=== PATIENT | male | born 1965 | race Caucasian/White ===

== ENCOUNTER 2017-05-12 19:49 | Inpatient (IN) ==
[2017-05-12 21:02] LABS: INR 2.2; Prothrombin Time 23.8 Seconds (9.4-12.1)
[2017-05-12] MEDS ORDERED: OXYCODONE Oral CONC 10 MG/0.5 ML ORAL.SYG SL PRN (21:07)
[2017-05-12] MEDS ORDERED: Naloxone 0.4 MG/ML INJ IVP PRN (21:07)
[2017-05-12] MEDS ORDERED: Ondansetron 4 MG/2 ML VIAL IVP PRN (21:07)
[2017-05-12] MEDS ORDERED: *HR* HYDROcodone/Acet 5/325 mg TABLET PO PRN (21:07)
--- NOTE | 2017-05-12 21:16 | Urology History & Physical ---
Date of Encounter: 05/12/17 Time of Encounter: 21:14 Assessment and Plan (1) Cellulitis of scrotum Current Visit: Yes Status: Acute This is an interesting presentation as there was a large amount of edema that occurred within hours of the drain removal. This would suggest a hematoma however bedside ultrasound in the emergency room demonstrates only scrotal wall edema without evidence of hematoma or fluid collection. This could be rapid onset of cellulitis. I have elected for admission with IV antibiotics. Will treat with vancomycin. We'll obtain an official ultrasound to confirm the bedside ultrasound findings. No need for urgent surgical intervention tonight is no hematoma is obvious. History of Present Illness Chief complaint: Scrotal swelling HPI: Mr. Layne is a 51 year old male 1.5 weeks status post hydrocelectomy. Patient has mechanical heart valve and is anticoagulated. Drain was left in place to help prevent hematoma. The drain fell out this afternoon and there was small stringy tissue that was also present. This was removed by the patient's . There is no major issue with removal of the drain or this tissue. Within a few hours he had concerning swelling to the hemiscrotum and some discomfort. No fever. Past Med Surg Social Fam HX - Past Medical History Medical history: hyperlipidemia, thyroid disease Psychiatric history: no psych history - Social History Smoking Status: Never smoker Smokeless Tobacco Status: No Alcohol use: occasionally Drug use: none Medications and Allergies Aspirin [Lo-Dose Aspirin EC] 81 mg PO DAILY 05/02/17 [History] Atorvastatin [Lipitor] 10 mg PO DAILY 05/02/17 [History] Cholecalciferol (D-3) [Vitamin D] 5,000 unit PO DAILY 05/02/17 [History] Fish Oil/Dha/Epa [Fish Oil 1,200 mg Fish Oil] 1 cap PO DAILY 05/02/17 [History] Levothyroxine Sodium [Synthroid] 137 mcg PO DAILY 05/02/17 [History] Multivitamin [One Daily Essential] 1 tab PO DAILY 05/02/17 [History] Tadalafil [Cialis] 5 mg PO DAILY 05/02/17 [History] Vitamin E Acetate [Vitamin E] 400 unit PO DAILY 05/02/17 [History] Warfarin [Coumadin] 5 mg PO SUTUWETHSA 05/02/17 [History] Warfarin [Coumadin] 7.5 mg PO MOFR 05/02/17 [History] 3 Allergy/AdvReac Type Severity Reaction Status Date / Time No Known Allergies Allergy Verified 05/02/17 07:24 Review of Systems - Constitutional no chills, no fever(s) - EENT Nose, mouth and throat: no dizziness - Cardiovascular no chest pain - Respiratory no cough - Gastrointestinal no abdominal pain - Genitourinary scrotal swelling - Musculoskeletal no back pain - Integumentary no lesions - Neurological no confusion - Psychiatric no anxiety - Hematologic/Lymphatic easy bleeding, easy bruising - Allergic/Immunologic no throat swelling Exam Initial Vital Signs Temp Pulse Resp BP Pulse Ox 97.9 F 97 16 164/131 98 05/12/17 19:51 05/12/17 19:51 05/12/17 19:51 05/12/17 19:51 05/12/17 19:51 - General physical appearance Present: well developed, no distress - Eyes Present: PERRL - ENT Present: normal nares - Neck Present: no masses - Respiratory Present: normal respiratory effort - Cardiovascular Cardiovascular exam IM: clicks, RRR - Abdomen Abdomen: Present: soft, non tender. Absent: suprapubic tenderness - Genitourinary normal penis with no external lesions - Integumentary Present: no abnormal pigmentation. Absent: no rash - Neurologic Absent: disoriented - Musculoskeletal Present: normal gait - Additional Findings On exam. The patient does not have significant ecchymosis to the scrotum. Edema is present but it appears more consistent with scrotal wall edema rather than underlying hematoma. Drain site is not draining. Some swelling up into the inguinal region. There is erythema on the left hemiscrotum that does not extend beyond the margins of the scrotum. There is no purulence. Left testicle was not palpable secondary to edema. Right testicle is palpably normal. Incision line is intact. Urology Results - Labs Abnormal lab results PT 23.8 Seconds (9.4-12.1) H 05/12/17 20:40 All other labs normal.
[2017-05-12 21:29] LABS: BUN/Creatinine Ratio 15 (6-26); Blood Urea Nitrogen 13 mg/dL (6-20); Carbon Dioxide 29 mEq/L (23-29); Chloride 105 mEq/L (98-107); Glucose 86 mg/dL (70-105); Osmolality,Calculated 293 (280-300); Potassium 3.7 mEq/L (3.5-5.1); Sodium 142 mEq/L (136-145); eGFR For African Americans > 60 (> 60); eGFR For Non-African Americans > 60 (> 60)
[2017-05-12 21:59] LABS: Basophils # 0.1 K/mcL (0.0-0.2); Basophils % 0.5 %; Eosinophils # 0.1 K/mcL (0.0-0.6); Hematocrit 43.6 % (37.5-50.1); Hemoglobin 14.7 g/dL (12.9-16.9); Immature Granulocytes % 0.5 % (0-4); Lymphocytes # 1.8 K/mcL (0.6-4.6); Lymphocytes % 18.4 %; Mean Corpuscular HGB Conc 33.7 g/dL (31.6-35.5); Mean Platelet Volume 9.9 fL (9.4-12.4); Monocytes % 10.4 %; Neutrophils # 6.9 K/mcL (1.6-8.9); Platelet Count 301 K/mcL (140-400); Red Blood Count 4.74 M/mcL (4.19-5.50); Red Cell Distribution Width 12.1 % (11.5-14.5); Segmented Neutrophils % 69.2 %
[2017-05-12] MEDS ORDERED: 0.9 % Sodium Chloride 1,000 ML ONE (22:04)
[2017-05-12] MEDS: *HR* Warfarin 7.5 MG TABLET PO SCH (22:35)
[2017-05-12] MEDS: 0.9 % Sodium Chloride 1,000 ML IVC SCH (22:35)
[2017-05-13] MEDS: Ibuprofen 400 MG TABLET PO PRN (04:57)
--- NOTE | 2017-05-13 07:59 | Urology Progress Note ---
Date of Encounter: 05/13/17 Time of Encounter: 07:56 - Assessment and Plan (1) Cellulitis of scrotum Current Visit: Yes Status: Acute Assessment and plan: I reviewed the official scrotal ultrasound. There is minimal fluid collection and it appears that the swelling is consistent with scrotal wall edema. I suspect cellulitis. No urgent surgical intervention based on exam. I feel that IV antibiotics are most appropriate at this time. Continue vancomycin. We will add clindamycin. No infectious disease consult available at this time we will attempt to contact for any further recommendations. Plan discussed in detail with the patient. We did discuss obvious concern regarding cellulitis and mechanical heart valve. We will need to continue hospitalization with IV antibiotics for now. Progress Note Narrative: Reports minimal change in condition. Low-grade fever overnight. Pain has not increased. Objective Initial Vital Signs Temp Pulse Resp BP Pulse Ox 97.9 F 97 16 164/131 98 05/12/17 19:51 05/12/17 19:51 05/12/17 19:51 05/12/17 19:51 05/12/17 19:51 - General physical appearance Present: no distress - Additional Exam Continued edema to his scrotum. Possibly slight increase compared to last night. Erythema to the left hemiscrotum similar and has not extended above the scrotum. There is a distinct line in this location. No crepitus to the skin. No obvious purulence. Previous drain site is dry. Slight weeping of clear fluid from the incision. No increase in pain. - Labs 05/12/17 20:40 05/12/17 20:40 Consult Discharge Plan - Plan Referrals: Rae Ruiz,Rojelio Roblero [Primary Care Provider] -
[2017-05-13] MEDS: Clindamycin 600 MG/50 ML 600 MG/50 ML IV.SOLN IVPB SCH ×2 (09:17→18:06)
[2017-05-13] MEDS: Aspirin Enteric Coated 81 MG Tablet PO SCH (09:17)
[2017-05-13] MEDS: 0.9 % Sodium Chloride 1,000 ML IVC SCH (13:24)
[2017-05-13] MEDS: *HR* Warfarin 5 MG TABLET PO SCH (18:06)
[2017-05-14] MEDS: Ibuprofen 400 MG TABLET PO PRN (00:04)
[2017-05-14] MEDS: Clindamycin 600 MG/50 ML 600 MG/50 ML IV.SOLN IVPB SCH ×3 (00:06→16:21)
[2017-05-14] MEDS: 0.9 % Sodium Chloride 1,000 ML IVC SCH ×2 (05:31→18:11)
[2017-05-14 07:20] LABS: BUN/Creatinine Ratio 13 (6-26); Blood Urea Nitrogen 11 mg/dL (6-20); eGFR For African Americans > 60 (> 60); eGFR For Non-African Americans > 60 (> 60)
[2017-05-14 07:27] LABS: INR 2.1; Prothrombin Time 22.6 Seconds (9.4-12.1)
--- NOTE | 2017-05-14 08:04 | Urology Progress Note ---
Date of Encounter: 05/14/17 Time of Encounter: 08:01 - Assessment and Plan (1) Cellulitis of scrotum Current Visit: Yes Status: Acute Assessment and plan: fever trending down. exam stable maybe slight improvement. continue current ABX. hopefully more improvement overnight with decrease in fever. may consider repeat ultrasound at some point. blood cultures pending (but did not convert to positive yet) Progress Note Subjective: feels better, still having pain Narrative: low grade temp last night but trending down. pain similar. no drainage. Objective Initial Vital Signs Temp Pulse Resp BP Pulse Ox 97.9 F 97 16 164/131 98 05/12/17 19:51 05/12/17 19:51 05/12/17 19:51 05/12/17 19:51 05/12/17 19:51 - General physical appearance Present: no distress - Additional Exam left hemiscrotum remains firm and edematous. minimal improvement from yesterday but no purulence of new fluctuance. erythema remains confined to scrotum without progression. no crepitus. overall similar to maybe slightly improved. - Labs 05/12/17 20:40 05/14/17 06:40 Diabetes panel 05/14/17 Range/Units 06:40 BUN 11 (6-20) mg/dL Creatinine 0.83 (0.70-1.30) mg/dL Pituitary panel 05/14/17 Range/Units 06:40 BUN 11 (6-20) mg/dL Creatinine 0.83 (0.70-1.30) mg/dL Adrenal panel 05/14/17 Range/Units 06:40 BUN 11 (6-20) mg/dL Creatinine 0.83 (0.70-1.30) mg/dL Consult Discharge Plan - Plan Referrals: Rae Ruiz,Rojelio Roblero [Primary Care Provider] -
[2017-05-14] MEDS: Aspirin Enteric Coated 81 MG Tablet PO SCH (08:20)
[2017-05-14] MEDS: *HR* Warfarin 5 MG TABLET PO SCH (18:11)
[2017-05-14 19:06] LABS: Bilirubin,Urine Negative (Negative); Blood,Urine Trace (Negative); Clarity,Urine Clear (Clear); Color,Urine Yellow (Yellow); Glucose,Urine (UA) Normal (Normal); Ketones,Urine Negative (Negative); Leukocyte Esterase,Urine Negative (Negative); Nitrite,Urine Negative (Negative); Protein,Urine Negative (Neg-Trace); Specific Gravity,Urine 1.022 (1.010-1.025); Urobilinogen,Urine Normal (Normal)
[2017-05-14 19:14] LABS: Bacteria,Urine None Seen per hpf (None-Few); Hyaline Casts,Urine None Seen per lpf (None-Few); Squamous Epithelial Cell,Urine None Seen per lpf (None-Few); WBC,Urine 0-3 per hpf (0-3)
[2017-05-15] MEDS: Clindamycin 600 MG/50 ML 600 MG/50 ML IV.SOLN IVPB SCH ×2 (00:03→09:10)
--- NOTE | 2017-05-15 07:31 | Urology Progress Note ---
Date of Encounter: 05/15/17 Time of Encounter: 07:29 - Assessment and Plan (1) Cellulitis of scrotum Current Visit: Yes Status: Acute Assessment and plan: improving. no fever overnight. will ask ID to provide ABX recs for discharge Progress Note Subjective: feels better Narrative: no fever overnight Objective Initial Vital Signs Temp Pulse Resp BP Pulse Ox 97.9 F 97 16 164/131 98 05/12/17 19:51 05/12/17 19:51 05/12/17 19:51 05/12/17 19:51 05/12/17 19:51 - General physical appearance Present: no distress - Additional Exam decreasing erythema. still with firmness but improvement. - Labs 05/12/17 20:40 05/14/17 06:40 Consult Discharge Plan - Plan Referrals: Rae Ruiz,Rojelio Roblero [Primary Care Provider] -
[2017-05-15] MEDS: Aspirin Enteric Coated 81 MG Tablet PO SCH (09:10)
--- NOTE | 2017-05-15 10:44 | Infectious Disease Consult ---
Date of Encounter: 05/15/17 Time of Encounter: 10:34 Assessment and Plan (1) Sepsis Status: Acute Assessment and plan: Patient had tachycardia, [id number], Source Scrotal cellulitis - Blood cultures x2 negative - Abx Vancomycin since 05/12, Clindamycin since 05/13. Plan to continue Vancomycin IV until discharge and discontinue Clindamycin, Start IV Levaquin. At the time of discharge continue Levaquin and Start Bactrim with total antibiotic coverage for 14 days. Clinically improving. Qualifiers: Sepsis type: sepsis due to unspecified organism Qualified Code(s): A41.9 - Sepsis, unspecified organism (2) Cellulitis of scrotum Status: Acute Assessment and plan: Admission with scrotal cellulitis started 05/12/2017 with procedure hydrocelectomy on 05/02/2017 - Organism: Unknown - Current abx: Vancomycin (05/12-05/15), Clindamycin (05/13-05/15) - Scrotal ultrasound: IMPRESSION: 1. Bilateral testicles are unremarkable without evidence of torsion. 2. Interval reduction of left hydrocele with trace residual fluid. 3. Trace right hydrocele. 4. Scrotal wall thickening and edema, mostly in the left scrotum. The left epididymis also appears slightly hypervascular, possibly representing cellulitis and epididymitis. - Clinically improving - antibiotic plan as above. (3) Epididymitis with no abscess Status: Acute Assessment and plan: I examined this patient and my medical decision-making was reviewed with the Resident Physician. I agree with the documented findings, disposition and treatment plan as described except to the extent set forth below. This is an addendum to original report dictated by resident physician. Please refer to his note for full details. Patient is a 51-year-old gentleman who was directly admitted by Dr. Rao from urology for scrotal swelling on May 12, we are consulted for antibiotics recommendations on May 15. Patient with past medical history mentioned below including history of bicuspid aortic valve that is congenital who had a mechanical valve replacement approximately 10 years ago currently on blood thinners was initially seen by urology for left hydrocele and underwent a left hydrocolectomy by Dr. Rao May 02. A quarter inch Sumanth was placed to the inferior aspect of the scrotum through a separate stab incision and brought into the hemiscrotum. he drain fell out this afternoon and there was small stringy tissue that was also present. This was removed by the patient's . On the day of admission patient apparently started noticing scrotal pain and swelling on the left side. Patient denied any fevers, chills, diaphoresis, nausea or vomiting, chest pain or shortness of breath. Patient called his urologist and was admitted for further evaluation. Since admission patient had an episode of fever with MAXIMUM TEMPERATURE of 101.3 Fahrenheit, episodes of tachycardia with heart rate as high as 125, a presenting white blood cell count of 10,000 with 70% neutrophils no bands, normal kidney function and in normal urinalysis. Blood cultures were obtained and were 17 and are no growth to date. A scrotal ultrasound performed on May 12 which revealed bilateral testicles are unremarkable without evidence of torsion. Interval reduction of the left hydrocele with trace residual fluid. Trace right hydrocele. Scrotal wall thickening and edema mostly in the left scrotum the left epididymis also appears slightly hypervascular possibly representing cellulitis and epididymitis. A shunt was started empirically on clindamycin and vancomycin and we were asked to evaluate the patient and make further recommendations. At this point continue vancomycin stop clindamycin start levofloxacin goal vancomycin trough around 10-15 duration of treatment depends on clinical picture we might consider switching to oral antibiotics on discharge if patient is doing well monitor labs and for drug toxicity (4) Hx of aortic valve repair Status: Acute Assessment and plan: History of bicuspid aortic valve since , aortic valve replacement mechanical valve 10 years ago without complication - Current INR 2.1, Goal INR 2.5-3.0 - Blood cultures 05/13/2017 2 negative for growth Infectious Disease HPI - Data of Consult Consult date: 05/15/17 Requesting Physician: Bryant Rao Primary Care Provider: Rojelio Mcbride M.D. - Consult Narrative Reason for consult: antibiotic recommendations for scrotal cellulitis History of present illness: 51-year-old male admitted to the hospital by his urologist for scrotal swelling on 05/12/2017. Infectious disease consult placed for antibiotic recommendations at discharge. Placed 05/15/17 Initial vitals: Temp 97.9, heart rate 97, respirations 16, blood pressure 164/ 131, oxygen saturation 98% room air Initial Labs: WBC 10.0, hemoglobin 14.7, hematocrit 43.6, platelet 301, INR 2.2 , sodium 142, potassium 3.7, chloride 105, bicarbonate 29, BUN 13, creatinine 0.86, GFR > 60, glucose 86 Mr. Layne was postoperative hydrocelectomy performed by Dr. Bryant Rao 1.5 weeks prior to admission. Earlier Monday morning the day of admission he had noticed the scrotal drain had fallen out unintentionally. His examined the drain site and noticed a 6 inch piece of tissue hanging out which she removed by hand. Roughly 1-2 hours after this removal he started having pain in his scrotum and swelling of the left side. The swelling was rapid and he became concerned calling his urologist and after discussion he was admitted to the hospital and started on IV vancomycin. Mr. Layne denies any preceding fevers, chills, diaphoresis, nausea vomiting, scrotal erythema, change in scrotal edema or abnormal drainage outside of the scrotal drain. After he was admitted to the hospital he felt that his heart rate was increased, he developed a fever and was mildly diaphoretic which has resolved. He felt the scrotal edema was at its maximum Monday evening 24 hours after it started. His was at bedside collected images for comparison. Since Monday he feels that the edema has diminished on the inferior portion of his scrotum but he has increased fullness on his left scrotum. He continues to have warmth but diminished pain. He denies any fevers, chills, diaphoresis and Monday. Significant contributing medical hx; History of aortic bicuspid valve since , aortic valve replacement 10 years ago without complication. Scrotal cellulitis 5 years ago underwent seven-day hospital stay with IV antibiotics resulting hydrocele for which she underwent hydrocelectomy is followed by a scrotal hematoma with chronic scrotal swelling since the procedure and underwent his current hydrocelectomy. Between both procedures he has had multiple drains placed without complication but no resolution of the underlining problem. He denies any other known infections, surgeries or invasive procedures. Todays vitals: Temperature 98.5, heart rate 82, respiratory 14, blood pressure 137/86, oxygenation 96% room air Todays labs: Creatinine 0.83, BUN 11, GFR > 60, INR 2.1 CC: Bryant Rao Past Med Surg Social Fam HX - Past Medical History Medical history: hyperlipidemia, thyroid disease Psychiatric history: no psych history - Social History Smoking Status: Never smoker Smokeless Tobacco Status: No Alcohol use: occasionally Drug use: none - Family History Mother Hx Family Endocrine Disorder: Yes (gout) Infectious Disease-CN:Meds Aspirin [Lo-Dose Aspirin EC] 81 mg PO DAILY 05/02/17 [History] Atorvastatin [Lipitor] 10 mg PO DAILY 05/02/17 [History] Cholecalciferol (D-3) [Vitamin D] 5,000 unit PO DAILY 05/02/17 [History] Fish Oil/Dha/Epa [Fish Oil 1,200 mg Fish Oil] 1 cap PO DAILY 05/02/17 [History] Levothyroxine Sodium [Synthroid] 137 mcg PO DAILY 05/02/17 [History] Multivitamin [One Daily Essential] 1 tab PO DAILY 05/02/17 [History] Tadalafil [Cialis] 5 mg PO DAILY 05/02/17 [History] Vitamin E Acetate [Vitamin E] 400 unit PO DAILY 05/02/17 [History] Warfarin [Coumadin] 5 mg PO SUTUWETHSA 05/02/17 [History] Warfarin [Coumadin] 7.5 mg PO MOFR 05/02/17 [History] 3 Allergy/AdvReac Type Severity Reaction Status Date / Time No Known Allergies Allergy Verified 05/02/17 07:24 - Constitutional Constitutional: Present: chills, excessive sweating, fever(s). Absent: headache (s), weakness - Cardiovascular Cardiovascular: Absent: chest pain, dyspnea, dyspnea on exertion, radiating pain , rapid heart rate, slow heart rate, syncope - Respiratory Respiratory: Absent: cough, dyspnea, excessive phlegm production, change in phlegm color - Genitourinary Genitourinary: scrotal swelling, testicular mass Exam - Constitutional Vitals: Temp Pulse Resp BP Pulse Ox 98.5 F 82 14 137/86 96 05/15/17 06:38 05/15/17 06:38 05/15/17 06:38 05/15/17 06:38 05/15/17 06:38 - Head Head exam: Present: atraumatic, normocephalic - ENT ENT exam: Present: mucous membranes moist - Respiratory Respiratory exam: Present: CTAB - Cardiovascular Cardiovascular exam: Present: RRR, +S1, +S2 - GI/Abdominal GI/Abdominal exam: Present: normal bowel sounds, soft Additional comments: Enlarged edematous and erythematous scrotum with palpable fullness in the left scrotal region nontender to palpation with midline incision healing appropriately without drainage, left inferior scrotal incision where previous drain was with mild serosanguineous discharge. - Extremities Exam Extremities exam: Present: normal inspection Infectious Disease CN: Results - Labs CBC & Chem 7: 05/12/17 20:40 05/14/17 06:40 Serology: Serology 05/14/17 Range/Units 09:42 Urine Color Yellow (Yellow) Urine Clarity Clear (Clear) Urine pH 6.0 (5.0-8.0) pH Units Ur Specific [place]on 1.022 (1.010-1.025) Urine Protein Negative (Neg-Trace) mg/dL Urine Glucose (UA) Normal (Normal) mg/dL Urine Ketones Negative (Negative) mg/dL Urine Blood Trace H (Negative) Urine Nitrite Negative (Negative) Urine Bilirubin Negative (Negative) Urine Urobilinogen Normal (Normal) mg/dL Ur Leukocyte Esterase Negative (Negative) Urine Microscopic RBC 3-5 H (0-3) per hpf Urine Microscopic WBC 0-3 (0-3) per hpf Ur Squamous Epith Cells None Seen (None-Few) per lpf Urine Bacteria None Seen (None-Few) per hpf Hyaline Casts None Seen (None-Few) per lpf Ur Culture Indicated? NO (NO) Consult Discharge Plan - Plan Referrals: Rae Ruiz,Rojelio Roblero [Primary Care Provider] - - Attending Attestation I examined this patient and my medical decision-making was reviewed with the Resident Physician. I agree with the documented findings, disposition and treatment plan as described except to the extent set forth below. This is an addendum to original report dictated by resident physician. Please refer to his note for full details. Patient is a 51-year-old gentleman who was directly admitted by Dr. Rao from urology for scrotal swelling on May 12, we are consulted for antibiotics recommendations on May 15. Patient with past medical history mentioned below including history of bicuspid aortic valve that is congenital who had a mechanical valve replacement approximately 10 years ago currently on blood thinners was initially seen by urology for left hydrocele and underwent a left hydrocolectomy by Dr. Rao May 02. A quarter inch Sumanth was placed to the inferior aspect of the scrotum through a separate stab incision and brought into the hemiscrotum. he drain fell out this afternoon and there was small stringy tissue that was also present. This was removed by the patient's . On the day of admission patient apparently started noticing scrotal pain and swelling on the left side. Patient denied any fevers, chills, diaphoresis, nausea or vomiting, chest pain or shortness of breath. Patient called his urologist and was admitted for further evaluation. Since admission patient had an episode of fever with MAXIMUM TEMPERATURE of 101.3 Fahrenheit, episodes of tachycardia with heart rate as high as 125, a presenting white blood cell count of 10,000 with 70% neutrophils no bands, normal kidney function and in normal urinalysis. Blood cultures were obtained and were 17 and are no growth to date. A scrotal ultrasound performed on May 12 which revealed bilateral testicles are unremarkable without evidence of torsion. Interval reduction of the left hydrocele with trace residual fluid. Trace right hydrocele. Scrotal wall thickening and edema mostly in the left scrotum the left epididymis also appears slightly hypervascular possibly representing cellulitis and epididymitis. A shunt was started empirically on clindamycin and vancomycin and we were asked to evaluate the patient and make further recommendations. at this point, we should continue vancomycin stop clindamycin start levaquin gaol vancomycin trough of 10-15 monitor labs duration of treatment depends on clinical picture we might consider switching to oral antibiotics prior to dicharge if patient continues to do well but we shall see
[2017-05-15] MEDS: 0.9 % Sodium Chloride 1,000 ML IVC SCH (13:53)
[2017-05-15] MEDS: *HR* Warfarin 7.5 MG TABLET PO SCH (19:39)
[2017-05-15] MEDS: Levofloxacin 750 MG/150 ML 750 MG/150 ML BAG IVPB SCH (19:46)
[2017-05-16 04:46] LABS: Basophils % 0.4 %; Eosinophils # 0.2 K/mcL (0.0-0.6); Eosinophils % 2.3 %; Hematocrit 36.7 % (37.5-50.1); Immature Granulocytes % 0.3 % (0-4); Lymphocytes # 1.5 K/mcL (0.6-4.6); Lymphocytes % 15.9 %; Mean Corpuscular HGB Conc 34.3 g/dL (31.6-35.5); Mean Corpuscular Hemoglobin 31.3 pg (28.0-33.3); Mean Corpuscular Volume 91.1 fL (83.0-100.0); Mean Platelet Volume 9.8 fL (9.4-12.4); Monocytes # 0.9 K/mcL (0.0-1.3); Monocytes % 10.1 %; Neutrophils # 6.5 K/mcL (1.6-8.9); Platelet Count 286 K/mcL (140-400); Red Blood Count 4.03 M/mcL (4.19-5.50); Red Cell Distribution Width 12.3 % (11.5-14.5)
[2017-05-16 05:09] LABS: Hemoglobin 12.6 g/dL (12.9-16.9)
[2017-05-16 05:12] LABS: BUN/Creatinine Ratio 16 (6-26); Blood Urea Nitrogen 13 mg/dL (6-20); Calcium 8.6 mg/dL (8.6-10.3); Carbon Dioxide 24 mEq/L (23-29); Chloride 110 mEq/L (98-107); Glucose 103 mg/dL (70-105); Osmolality,Calculated 294 (280-300); Potassium 3.6 mEq/L (3.5-5.1); Sodium 142 mEq/L (136-145); eGFR For African Americans > 60 (> 60); eGFR For Non-African Americans > 60 (> 60)
[2017-05-16] MEDS: 0.9 % Sodium Chloride 1,000 ML IVC SCH ×2 (05:27→05:33)
[2017-05-16 05:34] LABS: INR 1.9
--- NOTE | 2017-05-16 07:50 | Urology Progress Note ---
Date of Encounter: 05/16/17 Time of Encounter: 07:48 - Assessment and Plan (1) Cellulitis of scrotum Current Visit: Yes Status: Acute Assessment and plan: appreciate ID recmira. GREGORY patient this AM. will likely discharge today on levaquin and bactrim. pt understands may take 3-4 weeks for complete resolution. will watch for liquefaction/abscess formation which can happen during this period of time. Progress Note Narrative: minimal change per patient. afebrile x48 hours. no reaction to levaquin overnight. Objective Initial Vital Signs Temp Pulse Resp BP Pulse Ox 97.9 F 97 16 164/131 98 05/12/17 19:51 05/12/17 19:51 05/12/17 19:51 05/12/17 19:51 05/12/17 19:51 - General physical appearance Present: no distress - Additional Exam left hemiscrotum still enlarged and firm. some improvement. no new fluctuance. - Labs 05/16/17 04:02 05/16/17 04:02 Diabetes panel 05/16/17 Range/Units 04:02 Sodium 142 (136-145) mEq/L Potassium 3.6 (3.5-5.1) mEq/L Chloride 110 H (98-107) mEq/L Carbon Dioxide 24 (23-29) mEq/L BUN 13 (6-20) mg/dL Creatinine 0.83 (0.70-1.30) mg/dL Glucose 103 (70-105) mg/dL Calcium 8.6 (8.6-10.3) mg/dL Calcium panel 05/16/17 Range/Units 04:02 Calcium 8.6 (8.6-10.3) mg/dL Pituitary panel 05/16/17 Range/Units 04:02 Sodium 142 (136-145) mEq/L Potassium 3.6 (3.5-5.1) mEq/L Chloride 110 H (98-107) mEq/L Carbon Dioxide 24 (23-29) mEq/L BUN 13 (6-20) mg/dL Creatinine 0.83 (0.70-1.30) mg/dL Glucose 103 (70-105) mg/dL Calcium 8.6 (8.6-10.3) mg/dL Adrenal panel 05/16/17 Range/Units 04:02 Sodium 142 (136-145) mEq/L Potassium 3.6 (3.5-5.1) mEq/L Chloride 110 H (98-107) mEq/L Carbon Dioxide 24 (23-29) mEq/L BUN 13 (6-20) mg/dL Creatinine 0.83 (0.70-1.30) mg/dL Glucose 103 (70-105) mg/dL Calcium 8.6 (8.6-10.3) mg/dL Consult Discharge Plan - Plan Referrals: Rae Ruiz,Rojelio Roblero [Primary Care Provider] -
--- NOTE | 2017-05-16 08:53 | Infectious Disease Progress No ---
Date of Encounter: 05/16/17 Time of Encounter: 08:53 - Assessment and Plan (1) Sepsis Current Visit: Yes Status: Acute Patient had tachycardia, [id number], Source Scrotal cellulitis ( Does not currently have SEPSIS criteria) - Blood cultures x2 negative - Abx Vancomycin and Levaquin (patient is tolerating) Plan: At the time of discharge continue Levaquin and Start Bactrim with total antibiotic coverage for 14 days. Qualifiers: Sepsis type: sepsis due to unspecified organism Qualified Code(s): A41.9 - Sepsis, unspecified organism (2) Cellulitis of scrotum Current Visit: Yes Status: Resolved Admission with scrotal cellulitis started 05/12/2017 with procedure hydrocelectomy on 05/02/2017 - Organism: Unknown - Current abx: Vancomycin (05/12-05/15), Clindamycin (05/13-05/15) - Scrotal ultrasound: IMPRESSION: 1. Bilateral testicles are unremarkable without evidence of torsion. 2. Interval reduction of left hydrocele with trace residual fluid. 3. Trace right hydrocele. 4. Scrotal wall thickening and edema, mostly in the left scrotum. The left epididymis also appears slightly hypervascular, possibly representing cellulitis and epididymitis. - Clinically improving - antibiotic plan as above. (3) Epididymitis with no abscess Current Visit: Yes Status: Acute Epididymitis identified on Scrotal US, clinically improving. No concerning changes over night. - Continue current plan for antibiotics. (4) Hx of aortic valve repair Current Visit: Yes Status: Acute History of bicuspid aortic valve since , aortic valve replacement mechanical valve 10 years ago without complication - Current INR 2.1, Goal INR 2.5-3.0 - Blood cultures 05/13/2017 2 negative for growth - Subjective Interval history: Mr. Layne has been seen about a patient bedside this point. He is alert awake interactive no acute distress without any other acute changes overnight. He states that he has not had any fevers, chills, diaphoresis. He has noticed improvement in the scrotal edema without any concerning discharge. He feels stable for discharge and agrees with antibiotics post discharge. Infect Dis PN-Objective Data - Labs CBC & Chem 7: 05/16/17 04:02 05/16/17 04:02 Labs: Laboratory Results - last 24 hr 05/16/17 05/16/1718 04:02 04:02 04:02 WBC 9.1 RBC 4.03 L Hgb 12.6 L D Hct 36.7 L MCV 91.1 MCH 31.3 MCHC 34.3 RDW 12.3 Plt Count 286 MPV 9.8 Immature Gran % 0.3 Seg Neutrophils % 71.0 Lymphocytes % 15.9 Monocytes % 10.1 Eosinophils % 2.3 Basophils % 0.4 Neutrophils # 6.5 Lymphocytes # 1.5 Monocytes # 0.9 Eosinophils # 0.2 Basophils # 0.0 PT 21.0 H INR 1.9 Sodium 142 Potassium 3.6 Chloride 110 H Carbon Dioxide 24 BUN 13 Creatinine 0.83 Est GFR ( Amer) > 60 Est GFR (Non-Af Amer) > 60 BUN/Creatinine Ratio 16 Glucose 103 Calculated Osmolality 294 Calcium 8.6 Cultures: Serology 05/14/17 Range/Units 09:42 Urine Color Yellow (Yellow) Urine Clarity Clear (Clear) Urine pH 6.0 (5.0-8.0) pH Units Ur Specific [place] 1.022 (1.010-1.025) Urine Protein Negative (Neg-Trace) mg/dL Urine Glucose (UA) Normal (Normal) mg/dL Urine Ketones Negative (Negative) mg/dL Urine Blood Trace H (Negative) Urine Nitrite Negative (Negative) Urine Bilirubin Negative (Negative) Urine Urobilinogen Normal (Normal) mg/dL Ur Leukocyte Esterase Negative (Negative) Urine Microscopic RBC 3-5 H (0-3) per hpf Urine Microscopic WBC 0-3 (0-3) per hpf Ur Squamous Epith Cells None Seen (None-Few) per lpf Urine Bacteria None Seen (None-Few) per hpf Hyaline Casts None Seen (None-Few) per lpf Ur Culture Indicated? NO (NO) Exam - Constitutional Vitals: Temp Pulse Resp BP Pulse Ox 98.0 F 79 14 143/88 95 05/16/17 05:22 05/16/17 05:22 05/16/17 05:22 05/16/17 05:22 05/16/17 05:22 - Head Head exam: Present: atraumatic, normocephalic - Neck Neck exam: Present: normal inspection - Respiratory Respiratory exam: Present: CTAB - Cardiovascular Cardiovascular exam: Present: RRR, +S1, +S2 - GI/Abdominal GI/Abdominal exam: Present: normal bowel sounds, soft. Absent: tenderness Additional comments: Enlarged edematous and erythematous scrotum with palpable fullness in the left scrotal region nontender to palpation with midline incision healing appropriately without drainage, left inferior scrotal incision where previous drain was without drainage this am. Edema slightly improved. - Extremities Exam Extremities exam: Present: normal inspection Consult Discharge Plan - Plan Additional Instructions: OK to shower ok to drive and perform activities of daily living. avoid heavy activity/ straining/swimming. swelling and firmness may last 4 weeks. call if major changes, large drainage, signs of abscess, fever keep scrotum well supported watch INR closely bc of antibiotics. all scripts sent to [facility] Referrals: Rae Ruiz,Rojelio Roblero [Primary Care Provider] - Bryant Rao MD [Partnered Physician] - (I will communicate through email regarding followup) Prescriptions: Levofloxacin [Levaquin] 750 mg PO DAILY #14 tablet Sulfamethoxazole/Trimeth DS [Bactrim DS] 1 each PO BID #28 tablet - Attending Attestation I examined this patient and my medical decision-making was reviewed with the Resident Physician. I agree with the documented findings, disposition and treatment plan as described except to the extent set forth below.
--- NOTE | 2017-05-16 08:56 | Discharge Summary ---
Orders not resulted at time of discharge: Pending orders 05/16/17 12:00 Vancomycin,Trough Timed Date of Encounter: 05/16/17 Time of Encounter: 08:57 - Discharge Diagnosis (1) Cellulitis of scrotum Priority: Primary Status: Resolved Comments: resolving. - Hospital Course Hospital course: Mr. Layne is a 51 year old male scrotal cellultitis. afebrile 48 hours. plan for discharge. - Time Spent with Patient Total time spent providing and/or coordinating discharge services: Less than 30 minutes Labs on day of discharge: Labs from last 24 hours 05/16/17 05/16/17 05/16/17 04:02 04:02 04:02 WBC 9.1 RBC 4.03 L Hgb 12.6 L D Hct 36.7 L MCV 91.1 MCH 31.3 MCHC 34.3 RDW 12.3 Plt Count 286 MPV 9.8 Immature Gran % 0.3 Seg Neutrophils % 71.0 Lymphocytes % 15.9 Monocytes % 10.1 Eosinophils % 2.3 Basophils % 0.4 Neutrophils # 6.5 Lymphocytes # 1.5 Monocytes # 0.9 Eosinophils # 0.2 Basophils # 0.0 PT 21.0 H INR 1.9 Sodium 142 Potassium 3.6 Chloride 110 H Carbon Dioxide 24 BUN 13 Creatinine 0.83 Est GFR ( Amer) > 60 Est GFR (Non-Af Amer) > 60 BUN/Creatinine Ratio 16 Glucose 103 Calculated Osmolality 294 Calcium 8.6 - Discharge Medications Prescriptions: Levofloxacin [Levaquin] 750 mg PO DAILY #14 tablet Sulfamethoxazole/Trimeth DS [Bactrim DS] 1 each PO BID #28 tablet Home Medications: Aspirin [Lo-Dose Aspirin EC] 81 mg PO DAILY 05/02/17 [History] Atorvastatin [Lipitor] 10 mg PO DAILY 05/02/17 [History] Cholecalciferol (D-3) [Vitamin D] 5,000 unit PO DAILY 05/02/17 [History] Fish Oil/Dha/Epa [Fish Oil 1,200 mg Fish Oil] 1 cap PO DAILY 05/02/17 [History] Levothyroxine Sodium [Synthroid] 137 mcg PO DAILY 05/02/17 [History] Multivitamin [One Daily Essential] 1 tab PO DAILY 05/02/17 [History] Tadalafil [Cialis] 5 mg PO DAILY 05/02/17 [History] Vitamin E Acetate [Vitamin E] 400 unit PO DAILY 05/02/17 [History] Warfarin [Coumadin] 5 mg PO SUTUWETHSA 05/02/17 [History] Warfarin [Coumadin] 7.5 mg PO MOFR 05/02/17 [History] Ibuprofen [Motrin] 400 mg PO Q8H PRN tablet 05/16/17 [Rx] Levofloxacin [Levaquin] 750 mg PO DAILY #14 tablet 05/16/17 [Rx] Sulfamethoxazole/Trimeth DS [Bactrim DS] 1 each PO BID #28 tablet 05/16/17 [Rx] Allergies/Adverse Reactions: 3 Allergy/AdvReac Type Severity Reaction Status Date / Time No Known Allergies Allergy Verified 05/02/17 07:24 Date of admission: 05/13/17 11:13 Primary care physician: Rojelio Mcbride M.D. Consults: 05/15/17 07:42 Consult to Infectious Diseases [CONS] Routine Consulting Provider: [facility] [place] Reason for Consult: scrotal cellulitis. on vanc and clinda. improving exam. please provide assistance with outpatient ABX. no cultures Call Completed: Yes Discharging clinician: Bryant Rao Anticipated date of discharge: 05/16/17 Exam Initial Vital Signs Temp Pulse Resp BP Pulse Ox 97.9 F 97 16 164/131 98 05/12/17 19:51 05/12/17 19:51 05/12/17 19:51 05/12/17 19:51 05/12/17 19:51 - General physical appearance Present: no distress - Abdomen Abdomen: Present: soft - Patient Status Disposition: Home, Self-Care Condition: Good Functional capacity at discharge: independent ambulation - Discharge Instructions Follow Up With: Rae Ruiz,Rojelio Roblero [Primary Care Provider] - Bryant Rao MD [Partnered Physician] - (I will communicate through email regarding followup) Forms: ED Satisfaction Letter Additional Instructions: OK to shower ok to drive and perform activities of daily living. avoid heavy activity/ straining/swimming. swelling and firmness may last 4 weeks. call if major changes, large drainage, signs of abscess, fever keep scrotum well supported watch INR closely bc of antibiotics. all scripts sent to [facility] - Diet and Activity Activity: other Diet: advance to your usual diet
[2017-05-16] MEDS: Levofloxacin 750 MG/150 ML 750 MG/150 ML BAG IVPB SCH (09:40)
[2017-05-16] MEDS: Aspirin Enteric Coated 81 MG Tablet PO SCH (09:41)
[2017-05-16 11:45] VITALS: BP 143/96
[2017-05-16] MEDS ORDERED: Aminoglycoside Consult 1 EACH MC ONE (16:30)
== END 2017-05-16 16:31 | disposition home or self-care (01) | DRG 872 ==
LOC: EMEROO 19:49 → 3ANU 19:49
PROVIDERS: ADMIT Urology; ATTEND Urology

== ENCOUNTER 2017-05-22 07:54 | Observation (INO) ==
[2017-05-22] MEDS ORDERED: *HR* LORazepam 2 MG/ML VIAL IVP ONE ×3 (08:23→17:40)
[2017-05-22] MEDS ORDERED: *HR* HYDROcodone/Acet 5/325 mg TABLET PO PRN (08:37)
[2017-05-22] MEDS ORDERED: Naloxone 0.4 MG/ML INJ IVP PRN (08:37)
[2017-05-22] MEDS: Ibuprofen 400 MG TABLET PO PRN ×2 (11:22→18:56)
--- NOTE | 2017-05-22 12:00 | Urology History & Physical ---
Date of Encounter: 05/22/17 Time of Encounter: 11:57 Assessment and Plan (1) Fever Current Visit: Yes Status: Acute At this point I'm unsure of the etiology of his continued fever. Obviously the scrotum remains a possible source however after the orchiectomy and scrotal washout with drain in place need to consider other sources. concerned about endocarditis. We'll again draw blood cultures. Urine culture. Chest x-ray. Consults placed to infectious disease and the hospitalist. His mechanical heart valve does raise concern but I would've expected a positive blood culture. I restarted Zosyn as he seemed to do well on this this weekend. ECHO scheduled for today. discussed case with hospitalists directly MUSE score 4. watching closely. IV tylenol now. Qualifiers: Fever type: due to other condition Qualified Code(s): R50.81 - Fever presenting with conditions classified elsewhere History of Present Illness Chief complaint: fever HPI: Mr. Layne is a 51 year old male with recent significant issues. hydrocelectomy 2-3 weeks ago. drain left in after procedure to minimize risk for hematoma. immediately testicular swelling after drain removed. Ultrasound showed scrotal wall thickening and epididymitis. He was admitted to the hospital for IV antibiotics which resolved his fever. Attempted discharge on Levaquin and Bactrim per infectious disease recommendations. Began to have significant fevers within 2 days of leaving the hospital. Readmitted to the hospital, based on exam and discussion amongst the urology group elected to proceed with scrotal exploration simple orchiectomy. Proximally 10 mL of foul- smelling purulent material was evacuated which was involving the area near his spermatic cord. Seemed to improve greatly after this procedure and was discharged again in 48 hours after. Was discharged on Bactrim but began to have fever again last night was in 48 hours after discharge. 4 blood cultures have been negative. Wound cultures negative at this time. Past Med Surg Social Fam HX - Past Medical History Medical history: hyperlipidemia, thyroid disease Psychiatric history: no psych history - Social History Smoking Status: Unknown if ever smoked Smokeless Tobacco Status: No Alcohol use: occasionally Drug use: none - Family History Mother Hx Family Endocrine Disorder: Yes (gout) Medications and Allergies Aspirin [Lo-Dose Aspirin EC] 81 mg PO DAILY 05/02/17 [History] Atorvastatin [Lipitor] 10 mg PO DAILY 05/02/17 [History] Cholecalciferol (D-3) [Vitamin D] 5,000 unit PO DAILY 05/02/17 [History] Fish Oil/Dha/Epa [Fish Oil 1,200 mg Fish Oil] 1 cap PO DAILY 05/02/17 [History] Levothyroxine Sodium [Synthroid] 137 mcg PO DAILY 05/02/17 [History] Multivitamin [One Daily Essential] 1 tab PO DAILY 05/02/17 [History] Tadalafil [Cialis] 5 mg PO DAILY 05/02/17 [History] Vitamin E Acetate [Vitamin E] 400 unit PO DAILY 05/02/17 [History] Warfarin [Coumadin] 5 mg PO SUTUWETHSA 05/02/17 [History] Warfarin [Coumadin] 7.5 mg PO MOFR 05/02/17 [History] Ibuprofen [Motrin] 400 mg PO Q8H PRN tablet 05/16/17 [Rx] Levofloxacin [Levaquin] 750 mg PO DAILY #14 tablet 05/16/17 [Rx] Sulfamethoxazole/Trimeth DS [Bactrim Ds] 1 each PO BID #28 tablet 05/16/17 [Rx] Sulfamethoxazole/Trimeth DS [Bactrim DS] 1 each PO DAILY 14 Days #28 tablet [Rx] 3 Allergy/AdvReac Type Severity Reaction Status Date / Time No Known Allergies Allergy Verified 05/02/17 07:24 Review of Systems - Constitutional chills, fever(s) - EENT Nose, mouth and throat: no dizziness - Cardiovascular no chest pain - Gastrointestinal no abdominal pain - Genitourinary no dysuria, no hematuria - Musculoskeletal no back pain - Integumentary no erythema - Neurological no confusion - Psychiatric anxiety, depression - Hematologic/Lymphatic no easy bleeding Exam Initial Vital Signs Temp Pulse Resp BP Pulse Ox 98.1 F 105 16 112/65 97 05/22/17 08:56 05/22/17 08:56 05/22/17 08:56 05/22/17 08:56 05/22/17 08:56 - General physical appearance Present: well developed, no distress, chronically ill - Eyes Present: PERRL, conjunctiva is clear - ENT Present: normal nares, no hearing loss - Neck Present: no masses, no lymphadenopathy - Respiratory Present: normal respiratory effort - Cardiovascular Cardiovascular exam IM: RRR - Abdomen Abdomen: Present: soft. Absent: masses, suprapubic tenderness - Integumentary Present: erythema (skin on upper half of body warm and red. ) - Neurologic Present: normal coordination. Absent: disoriented, confused - Musculoskeletal Present: normal gait - Additional Findings Skin total incision closed. Continued scrotal wall thickening but overall much improved abd not overly impressive for source of his infection. no erythema. OPAL drain in place with 5 cc serosanguineous fluid Urology Results - Labs 05/22/17 12:35 All other labs normal.
--- NOTE | 2017-05-22 12:05 | Internal Medicine Consult Note ---
Date of Encounter: 05/22/17 Time of Encounter: 11:45 - Assessment and Plan (1) Sepsis Current Visit: Yes Status: Suspected Assessment and plan: Patient with fever and tachycardia. Recent orchitis. Concern for sepsis. Check lactic acid. Sepsis bundle ordered. IV antibiotics. Will repeat blood cultures. Patient has had negative blood cultures before but he has been on IV antibiotics ever since his initial hospitalization. Qualifiers: Sepsis type: sepsis due to unspecified organism Qualified Code(s): A41.9 - Sepsis, unspecified organism (2) Fever Current Visit: Yes Status: Acute Assessment and plan: Patient presenting with persistent fever despite antibiotic use. Recent scrotal cellulitis and orchitis status post orchiectomy. Given the presence of mechanical heart valve. Concerning for infective endocarditis. Agree with consult to infectious disease. Will order 2-D echocardiogram for now. Patient will most likely need transesophageal echocardiogram. Follow blood culture results. Check lactic acid. Resume Zosyn. IV fluids. Monitor urine output. Monitor vital signs closely. High risk for complications. Qualifiers: Fever type: due to other condition Qualified Code(s): R50.81 - Fever presenting with conditions classified elsewhere (3) Hx of aortic valve repair Current Visit: Yes Status: Acute Assessment and plan: Patient with history of mechanical valve. Continue Coumadin. High risk for valve infection. (4) Orchitis Current Visit: Yes Status: Chronic Assessment and plan: Recent orchitis. Status post orchiectomy. Urology following. Internal Medicine - CN: HPI - Data of Consult Patient: new to practice Requesting Physician: Bryant Rao - Consult Narrative Reason for consult: Persistent fever History of present illness: Mr. Layne is a 51 year old male patient with history of mechanical heart valve on Coumadin, hypothyroidism, recent hydrocelectomy is admitted to the floor for recurrent episodes of fever. He was just discharged from the hospital yesterday after a short stay for similar complaints. He had been discharged previously on oral antibiotics but began to have fevers at home. The serous or high-grade with temperature going up to 103. He was suspected of having orchitis and so underwent simple orchiectomy. He his fever seemed to subside after the procedure here and patient was discharged home on oral antibiotics. However he continued to have fever at home and this morning his temperature was around 101. As such he was asked to come back in. He denies any chest pain. No abdominal pain. No nausea or vomiting. He was previously evaluated by infectious disease and recommended to be discharged on Bactrim and Levaquin to complete treatment course for 14 days for scrotal cellulitis. He has been taking antibiotics as prescribed. No diarrhea. Prior to his hydrocelectomy, he is not had any fevers or night sweats. He has been in otherwise fair health. No shortness of breath. No chest pain. No palpitations. Past Med Surg Social Fam HX - Past Medical History Attestation: Yes The following information was validated with the patient. Source: patient Medical history: hyperlipidemia, thyroid disease Psychiatric history: no psych history - Past Surgical History Surgical History: heart valve replacement (Mechanical) - Social History Smoking Status: Unknown if ever smoked Smokeless Tobacco Status: No Alcohol use: occasionally Drug use: none - Family History Mother Hx Family Endocrine Disorder: Yes (gout) - Additional Family History Additional family history: Reviewed at this time and found to be noncontributory - Constitutional Constitutional: chills, fever(s), malaise - EENT Eyes: no loss of vision, no photophobia, no seeing flashes Nose, mouth and throat: no bleeding gums, no lip swelling - Cardiovascular Cardiovascular ROS IM: no chest pain, no dyspnea, no dyspnea on exertion, no lightheadedness, no palpitations - Respiratory Respiratory: no cough, no dyspnea, no dyspnea on exertion, no excessive phlegm production, no change in phlegm color - Gastrointestinal Gastrointestinal: no nausea, no vomiting - Genitourinary Genitourinary ROS male: urinary frequency, no flank pain, no genital lesions, no hematuria - Musculoskeletal Musculoskeletal ROS IM: no back pain, no neck pain, no numbness, no stiffness, no tingling - Integumentary Integumentary IM: no erythema, no rash - Neurological Neurological ROS: no abnormal speech, no behavioral changes, no burning sensations, no radicular pain, no restless legs, no tremor(s), no vertigo - Psychiatric Psychiatric: no anxiety, no suicidal ideation, no visual hallucinations - Endocrine Endocrine IM: no excessive sweating, no fatigue, no flushing, no heat intolerance - Hematologic/Lymphatic Hematologic/Lymphatic: no easy bleeding, no easy bruising, no lymphadenopathy Internal Medicine - CN: Meds Aspirin [Lo-Dose Aspirin EC] 81 mg PO DAILY 05/02/17 [History] Atorvastatin [Lipitor] 10 mg PO DAILY 05/02/17 [History] Cholecalciferol (D-3) [Vitamin D] 5,000 unit PO DAILY 05/02/17 [History] Fish Oil/Dha/Epa [Fish Oil 1,200 mg Fish Oil] 1 cap PO DAILY 05/02/17 [History] Levothyroxine Sodium [Synthroid] 137 mcg PO DAILY 05/02/17 [History] Multivitamin [One Daily Essential] 1 tab PO DAILY 05/02/17 [History] Tadalafil [Cialis] 5 mg PO DAILY 05/02/17 [History] Vitamin E Acetate [Vitamin E] 400 unit PO DAILY 05/02/17 [History] Warfarin [Coumadin] 5 mg PO SUTUWETHSA 05/02/17 [History] Warfarin [Coumadin] 7.5 mg PO MOFR 05/02/17 [History] Ibuprofen [Motrin] 400 mg PO Q8H PRN tablet 05/16/17 [Rx] Levofloxacin [Levaquin] 750 mg PO DAILY #14 tablet 05/16/17 [Rx] Sulfamethoxazole/Trimeth DS [Bactrim Ds] 1 each PO BID #28 tablet 05/16/17 [Rx] Sulfamethoxazole/Trimeth DS [Bactrim DS] 1 each PO DAILY 14 Days #28 tablet [Rx] 3 Allergy/AdvReac Type Severity Reaction Status Date / Time No Known Allergies Allergy Verified 05/02/17 07:24 Internal Medicine - CN: Exam - Constitutional Vitals: Temp Pulse Resp BP Pulse Ox 103.1 F H 105 16 112/65 97 05/22/17 11:17 05/22/17 08:56 05/22/17 08:56 05/22/17 08:56 05/22/17 08:56 General appearance IM: Present: cooperative, A&O X 3, answers questions appropriately Exam: Moderate distress - Eye Eye exam: Present: EOMI, PERRL - ENT ENT exam: Present: mucous membranes dry - Neck Neck exam general surgery: Present: full ROM, normal inspection. Absent: lymphadenopathy - Respiratory Respiratory exam: Present: CTAB. Absent: chest wall tenderness, decreased breath sounds, stridor, wheezes, tachypnea - Cardiovascular Cardiovascular exam IM: Present: RRR, +S1, +S2, systolic murmur (Systolic click) - GI/Abdominal GI/Abdominal exam IM: Present: normal bowel sounds, soft. Absent: tenderness - Extremities Exam Extremities exam IM: Present: full ROM. Absent: pedal edema, tenderness - Neurological Exam Neurological exam: Present: alert, CN II-XII intact, oriented X3, no focal deficits, strengths equal and symetr throughout - Psychiatric Psychiatric exam: Present: normal affect, normal mood - Skin Skin exam IM: Present: dry, normal color, warm Internal Medicine - CN: Reslt - Labs Labs: Labs are pending. Consult Discharge Plan - Plan Referrals: Rae Ruiz,Rojelio Roblero [Primary Care Provider] -
[2017-05-22] MEDS ORDERED: 0.9 % Sodium Chloride 1,000 ML ONE (12:07)
[2017-05-22] MEDS ORDERED: Ibuprofen 400 MG TABLET PO PRN (12:14)
[2017-05-22] MEDS ORDERED: 0.9 % Sodium Chloride 1,000 ML IVC ONE (12:37)
[2017-05-22 12:52] LABS: Prothrombin Time 22.3 Seconds (9.4-12.1)
[2017-05-22 12:53] LABS: Basophils % 0.4 %; Eosinophils % 0.2 %; Hematocrit 39.6 % (37.5-50.1); Hemoglobin 13.3 g/dL (12.9-16.9); Immature Granulocytes % 0.7 % (0-4); Lymphocytes # 0.3 K/mcL (0.6-4.6); Mean Corpuscular HGB Conc 33.6 g/dL (31.6-35.5); Mean Corpuscular Hemoglobin 30.6 pg (28.0-33.3); Mean Platelet Volume 9.1 fL (9.4-12.4); Monocytes # 0.3 K/mcL (0.0-1.3); Monocytes % 2.4 %; Platelet Count 245 K/mcL (140-400); Red Blood Count 4.35 M/mcL (4.19-5.50); Segmented Neutrophils % 93.3 %
[2017-05-22 12:55] LABS: Activated Partial Thrombo Time 29.7 Seconds (26.0-36.0)
[2017-05-22] MEDS ORDERED: Piperacillin/Tazobactam 3.375 GM in 0.9 % Sodium Chloride Mini Bag 100 ML IVPB SCH ×2 (13:00→16:00)
[2017-05-22] MEDS ORDERED: Acetaminophen IV 1,000 MG/100 ML INFUS..BTL IVPB ONE (13:02)
[2017-05-22 13:07] LABS: Alanine Aminotransferase 21 Units/L (7-52); Albumin 3.9 g/dL (3.5-5.7); Albumin/Globulin Ratio 1.3 (1.1-2.2); Alkaline Phosphatase 83 Units/L (34-104); Aspartate Amino Transferase 20 Units/L (13-39); BUN/Creatinine Ratio 13 (6-26); Bilirubin,Total 0.8 mg/dL (0.3-1.0); Blood Urea Nitrogen 13 mg/dL (6-20); C-Reactive Protein 94 mg/L (Less than 10); Calcium 8.7 mg/dL (8.6-10.3); Carbon Dioxide 25 mEq/L (23-29); Chloride 99 mEq/L (98-107); Globulin 3.1 g/dL (2.4-3.5); Glucose 104 mg/dL (70-105); Osmolality,Calculated 278 (280-300); Potassium 3.4 mEq/L (3.5-5.1); Sodium 134 mEq/L (136-145); eGFR For African Americans > 60 (> 60); eGFR For Non-African Americans > 60 (> 60)
--- NOTE | 2017-05-22 13:52 | Infectious Disease Consult ---
Date of Encounter: 05/22/17 Time of Encounter: 13:49 Assessment and Plan (1) Sepsis Status: Suspected Assessment and plan: Patient meets sepsis criteria: Fever 103, tachycardia, scrotal cellulitis - Culture from 05/19/2017 growing gram-negative rods - Patient recent antibiotics of IV Zosyn, vancomycin and Levaquin/ home antibiotics include Bactrim DS and by mouth Levaquin - Continue Current antibiotics: IV Zosyn and IV vancomycin started 05/22/2017 Repeat labs: Blood cultures 2, urine culture Lactic acid 1.1 Respiratory infectious panel CXR Qualifiers: Sepsis type: sepsis due to unspecified organism Qualified Code(s): A41.9 - Sepsis, unspecified organism (2) Cellulitis of scrotum Status: Resolved Assessment and plan: hydrocelectomy on 05/02/2017 , followed by Admission with scrotal cellulitis started 05/12/2017, followed by readmission 05/18/2017 and left-sided orchiectomy 05/19/2017 with culture of fluid resulting gram-negative rods. - Awaiting Fluid culture final results - Continue current antibiotics as listed above. (3) Orchitis Status: Chronic Assessment and plan: Status post left-sided orchiectomy 05/19/2017 (4) Fever Status: Acute Assessment and plan: Temp 103.1, likely secondary to scrotal cellulitis but can not rule out other sources. Consider viral URI. - RIP and CXR pending - Continue current antibiotics at this time. Qualifiers: Fever type: due to other condition Qualified Code(s): R50.81 - Fever presenting with conditions classified elsewhere (5) Hx of aortic valve repair Status: Acute Assessment and plan: Hx of Bicuspid Aortic Valve, underwent Aortic valve replacement with mechanical valve. Infectious Disease HPI - Data of Consult Consult date: 05/22/17 Requesting Physician: Bryant Rao Primary Care Provider: Rojelio Mcbride M.D. - Consult Narrative Reason for consult: unknown fever History of present illness: Patient is a 51-year-old gentleman who was directly admitted by Dr. Rao from urology for scrotal swelling on May 22, Infectious Disease is consulted for evaluation of fever of unknown origin on May 22. Patient with past medical history mentioned below including history of bicuspid aortic valve that is congenital who had a mechanical valve replacement approximately 10 years ago currently on blood thinners was initially seen by urology for left hydrocele and underwent a left hydrocolectomy by Dr. Rao May 02. He was a direct admit on May [address] Hurtado for cellulitis of the scrotum and started on clindamycin and vancomycin. Infectious disease consult was placed May 15 and antibiotics were adjusted to vancomycin and IV Levaquin with recommendations for antibiotic coverage for 14 days. Scrotal ultrasound was concerning for left sided epididymitis. He was discharged on May 16 on Levaquin and Bactrim. After discharge she continued to have fevers and presented back for readmission (May 18) and reevaluation by urology. He was started on IV Zosyn which he was on throughout his inpatient stay. He underwent left-sided orchiectomy on 05/19/2017 and during the procedure brownish purulent fluid that was foul smelling was encountered and collected for culture. Preliminary growth thus far demonstrates gram-negative rods. He demonstrated clinical improvement and was discharged on 05/21/2017 with a new prescription for Bactrim DS, continued on Levaquin. After discharge that morning he began to feel a little bit feverish in the afternoon he had taken one Bactrim DS. He had his check his temperature which she states was roughly 100.1 and she continued to monitor without any antipyretics. She states that his temperature home fluctuated and eventually in the morning with 104. Overnight he had to urinate frequently urinating roughly 2 L which is abnormal for him. He had decreased oral intake, diaphoresis and felt like his heart was racing. This morning (may 22) after having a fever up to 104 his gave him Motrin, message to his urologist and brought him to the emergency department. Initial evaluation demonstrated a fever of 103.1, tachycardia, normal respiratory rate, stable blood pressure and oxygenating appropriately on room air. His initial labs demonstrated slightly elevated CBC from 7.8-10.8, 93.3% segmented neutrophils, neutrophil #10, no significant changes in his chemistry, C-reactive protein of 94. Mrs. Layne states they were admitted by 8 AM and between 8 AM and noon he declined quickly became less responsive and more diaphoretic shaking and red from his mid torso up. Since receiving Tylenol and started back on IV antibiotics she states he is doing much better more alert and interactive. Mr. Layne agrees with this course of events and states that he feels feverish and overall not feeling well. He denies seeing any abnormal amount of drainage from his new incision site or in the OPAL drain. He does admit to discomfort with urination. Since he was admitted he was started on IV Zosyn and vancomycin broad-spectrum coverage in the setting of sepsis. CC: Bryant Rao Past Med Surg Social Fam HX - Past Medical History Medical history: hyperlipidemia, thyroid disease Psychiatric history: no psych history - Past Surgical History Surgical History: heart valve replacement (Mechanical) - Social History Smoking Status: Unknown if ever smoked Smokeless Tobacco Status: No Alcohol use: occasionally Drug use: none - Family History Mother Hx Family Endocrine Disorder: Yes (gout) Infectious Disease-CN:Meds Aspirin [Lo-Dose Aspirin EC] 81 mg PO DAILY 05/02/17 [History] Atorvastatin [Lipitor] 10 mg PO DAILY 05/02/17 [History] Cholecalciferol (D-3) [Vitamin D] 5,000 unit PO DAILY 05/02/17 [History] Fish Oil/Dha/Epa [Fish Oil 1,200 mg Fish Oil] 1 cap PO DAILY 05/02/17 [History] Levothyroxine Sodium [Synthroid] 137 mcg PO DAILY 05/02/17 [History] Multivitamin [One Daily Essential] 1 tab PO DAILY 05/02/17 [History] Tadalafil [Cialis] 5 mg PO DAILY 05/02/17 [History] Vitamin E Acetate [Vitamin E] 400 unit PO DAILY 05/02/17 [History] Warfarin [Coumadin] 5 mg PO SUTUWETHSA 05/02/17 [History] Warfarin [Coumadin] 7.5 mg PO MOFR 05/02/17 [History] Ibuprofen [Motrin] 400 mg PO Q8H PRN tablet 05/16/17 [Rx] Levofloxacin [Levaquin] 750 mg PO DAILY #14 tablet 05/16/17 [Rx] Sulfamethoxazole/Trimeth DS [Bactrim Ds] 1 each PO BID #28 tablet 05/16/17 [Rx] Sulfamethoxazole/Trimeth DS [Bactrim DS] 1 each PO DAILY 14 Days #28 tablet [Rx] 3 Allergy/AdvReac Type Severity Reaction Status Date / Time No Known Allergies Allergy Verified 05/02/17 07:24 - Constitutional Constitutional: Present: chills, excessive sweating, fatigue, fever(s), night sweats - EENT Eyes: Absent: blurry vision Ears: Absent: decreased hearing Nose, mouth and throat: Present: mouth pain. Absent: dizziness - Cardiovascular Cardiovascular: Present: diaphoresis, rapid heart rate. Absent: slow heart rate , syncope - Respiratory Respiratory: Absent: cough, dyspnea, wheezing - Gastrointestinal Gastrointestinal: Absent: abdominal pain, diarrhea, loose stools, melena, nausea , vomiting - Genitourinary Genitourinary: scrotal swelling, urinary frequency, urinary urgency - Integumentary Integumentary: Present: erythema Exam - Constitutional Vitals: Temp Pulse Resp BP Pulse Ox 100.9 F H 111 15 129/88 92 05/22/17 12:23 05/22/17 12:23 05/22/17 12:23 05/22/17 12:23 05/22/17 12:23 Exam: General: Patient alert, awake, oriented 3, interactive, in mild distress, Rigers HEENT: Normocephalic, atraumatic, pupils equal reactive to light, scleral injection bilaterally, oral mucosa moist, uvula midline, neck supple trachea midline no palpable lymphadenopathy, no thyromegaly. Chest: Symmetric bilateral correlating with respiratory effort, effort nonlabored. Cardiac: Tachycardia, systolic mechanical murmur, Radial pulses 2+ bilateral, posterior tibial and dorsal pedal pulses 2+ bilateral. Respiratory: Clear to auscultation all lung green Abdomen: Soft, nontender, positive bowel sounds, no palpable masses appreciated on examination Extremities: Symmetric bilateral, bilateral lower extremities without erythema or edema patient moving all 4 extremities spontaneously. : Scrotal edema, erythema, left superior drain status post surgical sites without abnormal drainage, OPAL drain in place with serosanguineous drainage. Neurologic: No focal deficits appreciated on examination. Face symmetric, muscle strength symmetric bilateral upper and lower extremities. Skin: Diaphoretic, blanchable erythema from thorax through face Infectious Disease CN: Results - Labs CBC & Chem 7: 05/22/17 12:35 05/22/17 12:35 Consult Discharge Plan - Plan Referrals: Rae Ruiz,Rojelio Roblero [Primary Care Provider] -
--- NOTE | 2017-05-22 14:17 | Infectious Disease Consult ---
Date of Encounter: 05/22/17 Time of Encounter: 14:14 Assessment and Plan (1) Sepsis Status: Suspected Assessment and plan: had 2 sirs criteria on admission etiology not clear could be secondary to viral infection vs scrotal/urological infection vs pneumonia vs other pt started empirically on vancomycin/zosyn blood cultures have been obtained At this point, not sure what the source of infection is Get Respiratory infectious panel (ordered) check lactic acid level GET CXR await blood cultures to finalize follow up on GNR culture in the scrotum on 05/19 goal vancomycin trough around 15 monitor labs and for drug toxicity Qualifiers: Sepsis type: sepsis due to unspecified organism Qualified Code(s): A41.9 - Sepsis, unspecified organism (2) Cellulitis of scrotum Status: Resolved Assessment and plan: on previous admission no causative organism identified improved on IV vancomycin followed by oral bactrim currently no signs of infection (3) Hx of aortic valve repair Status: Acute Assessment and plan: secondary to bicuspid congenital aortic valve multiple blood cultures in the past have been negative no endocarditis stigmata on physicial exam (4) Orchitis Status: Chronic Assessment and plan: s/p left simple orchectomy on 05/19 Infectious Disease HPI - Data of Consult Patient: known to practice within the last 3 years Consult date: 05/22/17 Requesting Physician: Bryant Rao Primary Care Provider: Rojelio Mcbride M.D. - Consult Narrative Reason for consult: sepsis History of present illness: Mr. Layne is a 51 year old male This is an addendum to original report dictated by resident physician. Please refer to residents note for full detail. Patient is a 51-year-old gentleman who is well-known to our service who was recently seen by us on May 15 with sepsis, cellulitis of the scrotum and epididymitis with no abscess and a hydrocele status post left hydrocelectomy on May 02. Patients drain was removed one week later and had significant swelling and pain in the left testicle. Patient was seen by us and he was clinically doing much better. Vancomycin was stopped we recommended the patient goes home on Bactrim and levofloxacin. Patient was discharged on May 16. On May 18. Patient came back with fever and some shortness of breath apparently and left testicular discomfort. Patient was admitted started empirically on Zosyn. Blood cultures were obtained on May 18 which were no growth. Patient was taken to surgery where her underwent left simple orchiectomy on May 19. OPAL drain was placed and was discharged home on Bactrim. At home patient started having fevers again with a MAXIMUM TEMPERATURE of 104. decided to bring him back to the hospital for evaluation. No further questions patient tells me that she had a URI symptom few days prior. No other sick contacts. Patient denies any headache, blurred vision, earache, he does admit to some sore throat but no sinus pressure or rhinorrhea. Patient denies any neck stiffness. He did have some pleuritic chest pain he tells me and some cough. Patient denies any sputum production. She denies any nausea or vomiting. Patient denies any diarrhea. Patient denies any urinary symptoms. Patient denies any worsening scrotal pain. Patient denies any rash or joint pain. Since admission patient continues to be febrile and tachycardic.. Presenting WBC was 10.8 thousand with 94% neutrophils. No bands. ESR was checked and was 25 and a CRP of 94. Patient also appears well dehydrated. Blood cultures were obtained and pressure was started empirically on vancomycin and Zosyn. No imaging was done on the patient. CC: Bryant Rao Past Med Surg Social Fam HX - Past Medical History Medical history: hyperlipidemia, thyroid disease Psychiatric history: no psych history - Past Surgical History Surgical History: heart valve replacement (Mechanical) - Social History Smoking Status: Unknown if ever smoked Smokeless Tobacco Status: No Alcohol use: occasionally Drug use: none - Family History Mother Hx Family Endocrine Disorder: Yes (gout) Infectious Disease-CN:Meds Aspirin [Lo-Dose Aspirin EC] 81 mg PO DAILY 05/02/17 [History] Atorvastatin [Lipitor] 10 mg PO DAILY 05/02/17 [History] Cholecalciferol (D-3) [Vitamin D] 5,000 unit PO DAILY 05/02/17 [History] Fish Oil/Dha/Epa [Fish Oil 1,200 mg Fish Oil] 1 cap PO DAILY 05/02/17 [History] Levothyroxine Sodium [Synthroid] 137 mcg PO DAILY 05/02/17 [History] Multivitamin [One Daily Essential] 1 tab PO DAILY 05/02/17 [History] Tadalafil [Cialis] 5 mg PO DAILY 05/02/17 [History] Vitamin E Acetate [Vitamin E] 400 unit PO DAILY 05/02/17 [History] Warfarin [Coumadin] 5 mg PO SUTUWETHSA 05/02/17 [History] Warfarin [Coumadin] 7.5 mg PO MOFR 05/02/17 [History] Ibuprofen [Motrin] 400 mg PO Q8H PRN tablet 05/16/17 [Rx] Levofloxacin [Levaquin] 750 mg PO DAILY #14 tablet 05/16/17 [Rx] Sulfamethoxazole/Trimeth DS [Bactrim Ds] 1 each PO BID #28 tablet 05/16/17 [Rx] Sulfamethoxazole/Trimeth DS [Bactrim DS] 1 each PO DAILY 14 Days #28 tablet [Rx] 3 Allergy/AdvReac Type Severity Reaction Status Date / Time No Known Allergies Allergy Verified 05/02/17 07:24 Review of systems: 10 point ros done, negative other for what's mentioned in the HPI Exam - Constitutional Vitals: Temp Pulse Resp BP Pulse Ox 99.4 F 98 17 115/76 94 05/22/17 14:12 05/22/17 14:12 05/22/17 14:12 05/22/17 14:12 05/22/17 14:12 General appearance: febrile, disheveled, obese - Head Head exam: Present: atraumatic, normocephalic - Eye Eye exam: Present: EOMI, PERRL, sclera anicteric Additional comments: no conjunctival hemorrhage - ENT Additional comments: oral mucosa dry with oral thrush - Neck Neck exam: Present: normal inspection. Absent: meningismus, tenderness - Respiratory Respiratory exam: Present: CTAB. Absent: rhonchi, wheezes - Cardiovascular Cardiovascular exam: Present: RRR, +S1, +S2 - GI/Abdominal GI/Abdominal exam: Present: normal bowel sounds, soft. Absent: tenderness Additional comments: No scrotal swelling. Sutures from previous surgery intact. No penile discharge or lesions. OPAL drain left groin intact with no surrounding erythema. - Extremities Exam Extremities exam: Present: full ROM, normal inspection. Absent: pedal edema, tenderness - Neurological Exam Neurological exam: Present: alert, oriented X3. Absent: speech deficit - Skin Skin exam: Present: normal color. Absent: rash Infectious Disease CN: Results - Labs CBC & Chem 7: 05/22/17 12:35 05/22/17 12:35 Consult Discharge Plan - Plan Referrals: Rae Ruiz,Rojelio Roblero [Primary Care Provider] -
[2017-05-22] MEDS: Ringers Solution, Lactated 1,000 ML IVC SCH ×2 (16:20→20:16)
[2017-05-22] MEDS ORDERED: Levalbuterol Neb 1.25 MG/3 ML ONE (17:26)
[2017-05-22] MEDS ORDERED: *HR* LORazepam 2 MG/ML VIAL ONE (17:27)
[2017-05-22] MEDS ORDERED: *HR* Metoprolol 5 MG/5 ML VIAL IVP ONE ×2 (17:27→17:38)
[2017-05-22] MEDS: Levalbuterol Neb 1.25 MG/3 ML IH ONE ×2 (17:28→18:50)
[2017-05-22] MEDS ORDERED: methylPREDNISolone 125 MG/2 ML VIAL ONE (17:34)
[2017-05-22] MEDS ORDERED: *HR* Morphine 2 MG/ML SYRINGE IVP ONE ×2 (17:37→17:42)
[2017-05-22] MEDS ORDERED: methylPREDNISolone 125 MG/2 ML VIAL IVP ONE (17:38)
[2017-05-22] MEDS ORDERED: *HR* Heparin 5,000 UNIT/ML VIAL IVP ONE (17:40)
[2017-05-22] MEDS ORDERED: *HR* Heparin 5,000 UNIT/ML VIAL IVP PRN ×2 (17:40)
[2017-05-22] MEDS ORDERED: Heparin 25,000 UNIT/500 ML D5W 25,000 UNIT/500 ML BAG IVC SCH ×2 (17:45)
[2017-05-22] MEDS ORDERED: Dexmedetomidine HCl 400 MCG/100 ML MLS IVC SCH (17:45)
[2017-05-22 17:49] LABS: Adenovirus Not Detected (Not Detect); Bordetella Pertussis Not Detected (Not Detect); Chlamydophila pneumoniae Not Detected (Not Detect); Coronavirus 229E Not Detected (Not Detect); Coronavirus HKU1 Not Detected (Not Detect); Coronavirus NL63 Not Detected (Not Detect); Coronavirus OC43 Not Detected (Not Detect); Human Metapneumovirus Not Detected (Not Detect); Human Rhinovirus/Enterovirus Not Detected (Not Detect); Influenza A Subtype 2009 H1 Not Detected (Not Detect); Influenza A Untypeable Not Detected (Not Detect); Influenza B Not Detected (Not Detect); Mycoplasma pneumoniae Not Detected (Not Detect); Parainfluenza Virus 1 Not Detected (Not Detect); Parainfluenza Virus 2 Not Detected (Not Detect); Parainfluenza Virus 3 Not Detected (Not Detect); Parainfluenza Virus 4 Not Detected (Not Detect); Respiratory Syncytial Virus Not Detected (Not Detect)
[2017-05-22] MEDS ORDERED: *HR* Warfarin 5 MG TABLET PO ONE (18:00)
[2017-05-22] MEDS ORDERED: *HR* Warfarin 7.5 MG TABLET PO ONE (18:00)
[2017-05-22] MEDS ORDERED: Warfarin perPT PO PRN (18:00)
[2017-05-22] MEDS ORDERED: Ketorolac 30 MG/ML VIAL IVP ONE (18:08)
[2017-05-22 18:09] LABS: ABG Base Excess -3 mEq/L (-2 to 3); ABG HCO3 19 mEq/L (21-27); ABG Oxygen Saturation 95 % (95-98); ABG PCO2 25 mmHg (35-45); ABG PH 7.47 pH Units (7.32-7.45); ABG PO2 70 mmHg (85-104); ABG TCO2 19 mEq/L (20-26)
--- NOTE | 2017-05-22 18:22 | Event Note ---
Date of Encounter: 05/22/17 Time of Encounter: 17:30 Responded to rapid response called at 1722 hrs. Patient was dyspneic, tachycardic on arrival. He reported sudden onset shortness of breath and was having significant respiratory distress with use of accessory muscles. Initial examination showed clear lungs but he developed bronchospasm and wheezing soon after. He was given breathing treatments, 4 mg of Ativan, 4 mg of morphine, 5 mg of Lopressor to control his symptoms. He seemed to respond to these medications and his heart rate slowed down and his respiratory status seemed to improve. Patient was then transported to ICU. Will get chest x-ray. Discussed with student ministry pastor. In the ICU his temperature was around 105 initially. Patient being given Toradol. We will lactic acid level. 2-D echo shows mild left frontal and diastolic dysfunction with normal EF. No vegetations identified.
[2017-05-22] MEDS ORDERED: Acetaminophen 325 MG TABLET PO PRN (18:49)
--- NOTE | 2017-05-22 19:28 | Event Note ---
Date of Encounter: 05/22/17 Time of Encounter: 19:19 Patient's clinical condition has rapidly declined today. Rapid response called this afternoon. Patient was tachycardic and tachypnea. I evaluated patient shortly after in the ICU. Fever had rapidly increased from normal to 105. Chest x-ray performed which showed some congestion but no obvious answer the clinical situation. All potential etiologies for his illness or being considered including sepsis, pulmonary embolism, reaction to medications, etc. We will attempt to stabilize in order for transfer to [facility] Plan for CT chest, abdomen and pelvis tonight. Continuing broad-spectrum antibiotics I again examined the patient's scrotum despite some erythema this does not appear to be the obvious source of his clinical presentation. drain remains in place with scant fluid. Deep palpation to his abdomen performed which was soft and nontender. Small bowel movement today which was not diarrhea. I have been in constant contact with the patient's will continue to update the family with new findings.
--- NOTE | 2017-05-22 19:49 | Event Note ---
Date of Encounter: 05/22/17 Time of Encounter: 19:11
[2017-05-22 19:56] LABS: Hematocrit 33.8 % (37.5-50.1); Mean Corpuscular HGB Conc 33.1 g/dL (31.6-35.5); Mean Corpuscular Hemoglobin 30.5 pg (28.0-33.3); Mean Corpuscular Volume 92.1 fL (83.0-100.0); Mean Platelet Volume 9.1 fL (9.4-12.4); Platelet Count 207 K/mcL (140-400); Red Blood Count 3.67 M/mcL (4.19-5.50); Red Cell Distribution Width 12.2 % (11.5-14.5)
[2017-05-22] MEDS: Nystatin SUSP 5 ML UD.LIQ PO SCH ×2 (19:56→22:24)
[2017-05-22 19:57] LABS: Hemoglobin 11.2 g/dL (12.9-16.9)
[2017-05-22 20:06] LABS: INR 2.4; Prothrombin Time 26.2 Seconds (9.4-12.1)
[2017-05-22 20:09] LABS: Activated Partial Thrombo Time 42.3 Seconds (26.0-36.0)
[2017-05-22] MEDS: Meropenem 1,000 MG in Water for inj. (sterile) 20 ML 20 ML IVPB SCH (20:52)
[2017-05-22] MEDS ORDERED: *HR* Heparin 5,000 UNIT/ML VIAL ONE (20:59)
[2017-05-22] MEDS ORDERED: D5 IVPB SCH (22:00)
[2017-05-22] MEDS ORDERED: TOBRAMYCIN SULF IVPB SCH (22:00)
[2017-05-22] MEDS ORDERED: WATER IVPB SCH (22:00)
[2017-05-22] MEDS ORDERED: Acetaminophen 325 MG TABLET PO SCH (23:15)
[2017-05-22] MEDS: MetroNIDAZOLE 500 MG/100 ML 500 MG/100 ML BAG IVPB SCH (23:23)
[2017-05-22] MEDS ORDERED: Ibuprofen 600 MG TABLET PO PRN (23:44)
[2017-05-22] MEDS ORDERED: *HR* OxyCODONE Immed Rel 5 MG TABLET PO PRN (23:47)
--- NOTE | 2017-05-23 01:49 | Procedure Note ---
Date of procedure: 05/23/17 Pre-op diagnosis: hypotension, septic shock Post-op diagnosis: same Procedure: right internal jugular central venous catheter placement under ultrasound guidance Anesthesia: local (lidocaine 2 mL) Was there an assistant professor of physics present: No Estimated blood loss (cc): 1 Specimen: NONE Pathology: none sent Condition: stable Disposition: ICU Procedures - Central Line Placement Right IJ Central Line Inserted*: Yes Central Line Insertion: emergent Consent Obtained: written consent Procedural Pause: verify patient name and date of , timeout performed per policy, ilda and assess the site, assemble equipment and verify supplies, perform hand hygiene Patient Placed on Monitor/Pulse Ox: Yes During the Procedure: clinician is wearing sterile gloves, cap, mask,& gown during insertion, sterile field and sterile technique are maintained, patient's face is covered with drape or mask and wearing a cap, everyone in room is wearing a mask Central Line Prep: Chlorhexidine scrub Prep the Procedure Site: apply chloraprep to the skin using a back and forth scrubbing motion, apply chloraprep for 30 seconds (upper body), 1-2 min ( femoral sites), allow prep to dry, drape the patient with a full body drape Local Anesthetic: lidocaine 2% Amount of anesthesia used (mL): 2 Ultrasound Used for Placement: Yes Central Line Lumen Inserted: triple Post Procedure: sutured in place, good blood return, all ports aspirated, flushed, capped, sterile dressing applied, guide wire removed and visualized, dressing is dated Post Procedure X-Ray: tip of catheter in good position, no pneumothorax seen Patient Tolerated Procedure: well, no complications Complications: none Name of Clinician Inserting Central Line: Gonzalo Leon DO Date: 05/23/17 Time: 01:51
[2017-05-23] MEDS ORDERED: Norepinephrine 4 MG in D5% in Water 250 ML IVC SCH (02:00)
[2017-05-23 02:58] LABS: ABG Base Excess 2 mEq/L (-2 to 3); ABG HCO3 27 mEq/L (21-27); ABG Oxygen Saturation 98 % (95-98); ABG PCO2 42 mmHg (35-45); ABG PH 7.42 pH Units (7.32-7.45); ABG PO2 97 mmHg (85-104); ABG TCO2 28 mEq/L (20-26)
[2017-05-23 03:08] LABS: Hemoglobin 12.1 g/dL (12.9-16.9); Immature Platelets 2.3 % (1.1-6.1); Mean Corpuscular HGB Conc 33.6 g/dL (31.6-35.5); Mean Corpuscular Hemoglobin 30.6 pg (28.0-33.3); Mean Corpuscular Volume 90.9 fL (83.0-100.0); Mean Platelet Volume 9.2 fL (9.4-12.4); Platelet Count 246 K/mcL (140-400); Red Blood Count 3.96 M/mcL (4.19-5.50); Red Cell Distribution Width 12.1 % (11.5-14.5)
[2017-05-23] MEDS ORDERED: Hydrocortisone Sodium Succ 100 MG/2 ML VIAL IVP ONE (03:10)
--- NOTE | 2017-05-23 03:31 | Event Note ---
Date of Encounter: 05/23/17 Time of Encounter: 03:21 Patient remains afebrile after antipyretics and cooling blanket. BP has improved with levophed. Will honor request by for transfer to larger facility for further management and treatment of his fever with unknown origin. Primary team, UROLOGY, Dr. Rao, is also in agreement with plan once patient is more stable. He has been accepted for transfer admission to [facility] by "[facility]," going to Room 7518. He is hemodynamically stable at this time for transfer to [place], [place]. Of note, patient is somnolent but states he has not slept in a few days. He awakens to pain but simply goes back to sleep. He has history of ANGEL LUIS and has been on BiPAP for past several hours. Recheck of his ABG shows no indication for need to intubate pH 7.42, CO2 42, O2 97, Bicarb 27. Repeat labs were ordered prior to transfer, if any results are abnormal we will contact [facility] and notify them of results. Awaiting transport team.
[2017-05-23 03:34] LABS: BUN/Creatinine Ratio 16 (6-26); Blood Urea Nitrogen 21 mg/dL (6-20); Calcium 7.5 mg/dL (8.6-10.3); Carbon Dioxide 25 mEq/L (23-29); Chloride 101 mEq/L (98-107); Glucose 159 mg/dL (70-105); Osmolality,Calculated 286 (280-300); Sodium 135 mEq/L (136-145); eGFR For African Americans > 60 (> 60); eGFR For Non-African Americans 58 (> 60)
[2017-05-23 03:41] LABS: Large Platelets Present (Not Present); Monocytes # 0.2 K/mcL (0.0-1.3); Neutrophils # 11.6 K/mcL (1.6-8.9); Platelet Estimate Normal (Normal)
[2017-05-23] MEDS: Ringers Solution, Lactated 1,000 ML IVC SCH (04:05)
[2017-05-23] MEDS: Meropenem 1,000 MG in Water for inj. (sterile) 20 ML 20 ML IVPB SCH (04:37)
--- NOTE | 2017-05-23 05:20 | Urology Progress Note ---
Date of Encounter: 05/23/17 Time of Encounter: 05:10 - Assessment and Plan (1) Fever Current Visit: Yes Status: Acute Assessment and plan: I personnally reviewed the CT images and discussed with radiology last night. Although there is motion artifact there is no obvious source of his febrile illness. unable to completely rule out small peripheral PE but there was no evidence of heart strain suggesting he had no PE. ABD and head were normal. Transfer has be arranged to [facility]. I agree with this decision as the cause of his illness remains elusive. awaiting mobile unit. patient stable this AM. no further fever. will continue ABX and supportive care until transfer. ECHO normal but I suspect he will need KORTNEY as endocarditis has not been completely ruled out Final wound culture still pending but is growing GNR. Drain has had minimal output and has not been purulent. CT scan shows no obvious abscess, fourniers, etc. Per my standpoint, OK to remove drain at any point but I will leave this decision to [facility]. I still suspect the scrotum was the inciting event but based on my exam yesterday it doesn't appear to be self pay representative of his current acute illness. Qualifiers: Fever type: due to other condition Qualified Code(s): R50.81 - Fever presenting with conditions classified elsewhere Progress Note Narrative: pt with hypotension overnight but resolved after central line placed and did not require pressers. stable the rest of the night. Objective Initial Vital Signs Temp Pulse Resp BP Pulse Ox 98.1 F 105 16 112/65 97 05/22/17 08:56 05/22/17 08:56 05/22/17 08:56 05/22/17 08:56 05/22/17 08:56 - General physical appearance Present: no distress - Abdomen Present: soft - Labs 05/23/17 02:50 05/23/17 02:50 Diabetes panel 05/22/17 05/23/17 Range/Units 12:35 02:50 Sodium 134 L 135 L (136-145) mEq/L Potassium 3.4 L 3.0 L (3.5-5.1) mEq/L Chloride 99 101 (98-107) mEq/L Carbon Dioxide 25 25 (23-29) mEq/L BUN 13 21 H (6-20) mg/dL Creatinine 0.98 1.30 (0.70-1.30) mg/dL Glucose 104 159 H (70-105) mg/dL Calcium 8.7 7.5 L (8.6-10.3) mg/dL AST 20 (13-39) Units/L ALT 21 (7-52) Units/L Alkaline Phosphatase 83 (34-104) Units/L Albumin 3.9 (3.5-5.7) g/dL Calcium panel 05/22/17 05/23/17 Range/Units 12:35 02:50 Calcium 8.7 7.5 L (8.6-10.3) mg/dL Albumin 3.9 (3.5-5.7) g/dL Pituitary panel 05/22/17 05/23/17 Range/Units 12:35 02:50 Sodium 134 L 135 L (136-145) mEq/L Potassium 3.4 L 3.0 L (3.5-5.1) mEq/L Chloride 99 101 (98-107) mEq/L Carbon Dioxide 25 25 (23-29) mEq/L BUN 13 21 H (6-20) mg/dL Creatinine 0.98 1.30 (0.70-1.30) mg/dL Glucose 104 159 H (70-105) mg/dL Calcium 8.7 7.5 L (8.6-10.3) mg/dL Adrenal panel 05/22/17 05/23/17 Range/Units 12:35 02:50 Sodium 134 L 135 L (136-145) mEq/L Potassium 3.4 L 3.0 L (3.5-5.1) mEq/L Chloride 99 101 (98-107) mEq/L Carbon Dioxide 25 25 (23-29) mEq/L BUN 13 21 H (6-20) mg/dL Creatinine 0.98 1.30 (0.70-1.30) mg/dL Glucose 104 159 H (70-105) mg/dL Calcium 8.7 7.5 L (8.6-10.3) mg/dL Total Bilirubin 0.8 (0.3-1.0) mg/dL AST 20 (13-39) Units/L ALT 21 (7-52) Units/L Alkaline Phosphatase 83 (34-104) Units/L Albumin 3.9 (3.5-5.7) g/dL Consult Discharge Plan - Plan Referrals: Rae Ruiz,Rojelio Roblero [Primary Care Provider] -
[2017-05-23] MEDS: MetroNIDAZOLE 500 MG/100 ML 500 MG/100 ML BAG IVPB SCH (08:12)
[2017-05-23 08:22] VITALS: BP 110/79
--- NOTE | 2017-05-23 08:44 | Infectious Disease Progress No ---
Date of Encounter: 05/23/17 Time of Encounter: 08:43 - Assessment and Plan (1) Sepsis Status: Suspected Meets Severe SEPSIS criteria. Patient in the ICU in guarded condition, Continued to have elevations in temp to 102 over night,Tachycardia, hypotension, CORIE, elevated troponin and BiPAP. Significant lab changes: WBC elevation (12.1), seg neutrophils 80%, Band Neutrophils 16%, elevation in creatinine and troponin - Responded to rapid response (05/22) called at 1722 hrs. He developed bronchospasm and wheezing which resolved with intervention - Mr. Layne developed hypotension, tachycardia with continued fevers in the ICU - right sided IJ placed fur sorter 05/23 - Culture from 05/19/2017 growing Enterobacter aerogenes resistant to Cefazolin - CTA chest- No acute findings, no filling defect suggestive of PE - CT abd/pelvis- no specific, acute pathology in the abdomen or pelvis is identified. - Head CT non-contrast- No acute process identified - CXR- no overt pulmonary edema or consolidation Labs: Legionella antigen (-), RIP (-), mycoplams- pending. Blood cultures drawn 05/22- Pending results Abx: Vanomycin IV started 05/22 (day#2) Meropenum 1,000mg IV started 05/22 (day#2) Zosyn given 05/22 Tobramycin 440mg IV Q24hrs given 05/22 Flagyl 500mg IV started 05/22 (day #2) Patient transferred to [place] at family request. Qualifiers: Sepsis type: sepsis due to unspecified organism Qualified Code(s): A41.9 - Sepsis, unspecified organism (2) Cellulitis of scrotum Status: Resolved on previous admission no causative organism identified improved on IV vancomycin followed by oral bactrim currently no signs of infection (3) Fever Status: Acute Patient continues to have elevation in temp in the setting of Severe sepsis. - Continue antibiotic treatment. - No specific causative source identified. 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 Layne decompensated over night meeting severe sepsis criteria, requiring transfer to the ICU and Right IJ placement. He had multiple imaging studies completed without acute findings. He feels ill this morning and requires Bipap. His is at bedside and they have requested transfer to [place] for further evaluation. Infect Dis PN-Objective Data - Labs CBC & Chem 7: 05/23/17 04:00 05/23/17 08:04 Labs: Laboratory Results - last 24 hr 05/22/17 05/22/17 05/22/17 12:35 12:35 12:35 WBC 10.8 RBC 4.35 Hgb 13.3 Hct 39.6 MCV 91.0 MCH 30.6 MCHC 33.6 RDW 12.0 Plt Count 245 MPV 9.1 L Immature Gran % 0.7 Seg Neutrophils % 93.3 Band Neutrophils % Lymphocytes % 3.0 Monocytes % 2.4 Eosinophils % 0.2 Basophils % 0.4 Metamyelocytes % Neutrophils # 10.0 H Lymphocytes # 0.3 L Monocytes # 0.3 Eosinophils # 0.0 Basophils # 0.0 Platelet Estimate Large Platelets Immature Plt Fraction ESR 25 H PT INR APTT Sample Site ABG pH ABG pCO2 ABG pO2 ABG HCO3 ABG Total CO2 ABG O2 Saturation ABG Base Excess Ugo Test O2 Delivery Device Inspired O2 Sodium 134 L Potassium 3.4 L Chloride 99 Carbon Dioxide 25 BUN 13 Creatinine 0.98 Est GFR ( Amer) > 60 Est GFR (Non-Af Amer) > 60 BUN/Creatinine Ratio 13 Glucose 104 POC Glucose Calculated Osmolality 278 L Lactic Acid Calcium 8.7 Total Bilirubin 0.8 AST 20 ALT 21 Alkaline Phosphatase 83 Troponin I C-Reactive Protein 94 H B-Natriuretic Peptide Serum Total Protein 7.0 Albumin 3.9 Globulin 3.1 Albumin/Globulin Ratio 1.3 Random Cortisol Chlamy pneumoniae PCR Adenovirus (PCR) B. pertussis DNA (PCR) B.parapertussis DNA PCR Coronavirus OC43 (PCR) Coronavirus HKU1 (PCR) Coronavirus 229E (PCR) Coronavirus NL63 (PCR) Human Metapneumovir PCR Influenza A (H1) PCR Influ A (H1N1/09) PCR Influenza A (H3) PCR Influenza A Untype (PCR) Influenza Type B (PCR) M.pneumoniae DNA (PCR) Parainfluenza 1 (PCR) Parainfluenza 2 (PCR) Parainfluenza 3 (PCR) Parainfluenza 4 (PCR) RSV (PCR) Entero/Rhino (PCR) 05/22/17 05/22/17 05/22/17 12:35 12:35 14:40 WBC RBC Hgb Hct MCV MCH MCHC RDW Plt Count MPV Immature Gran % Seg Neutrophils % Band Neutrophils % Lymphocytes % Monocytes % Eosinophils % Basophils % Metamyelocytes % Neutrophils # Lymphocytes # Monocytes # Eosinophils # Basophils # Platelet Estimate Large Platelets Immature Plt Fraction ESR PT 22.3 H INR 2.0 APTT 29.7 Sample Site ABG pH ABG pCO2 ABG pO2 ABG HCO3 ABG Total CO2 ABG O2 Saturation ABG Base Excess Ugo Test O2 Delivery Device Inspired O2 Sodium Potassium Chloride Carbon Dioxide BUN Creatinine Est GFR ( Amer) Est GFR (Non-Af Amer) BUN/Creatinine Ratio Glucose POC Glucose Calculated Osmolality Lactic Acid 1.1 1.0 Calcium Total Bilirubin AST ALT Alkaline Phosphatase Troponin I C-Reactive Protein B-Natriuretic Peptide Serum Total Protein Albumin Globulin Albumin/Globulin Ratio Random Cortisol Chlamy pneumoniae PCR Adenovirus (PCR) B. pertussis DNA (PCR) B.parapertussis DNA PCR Coronavirus OC43 (PCR) Coronavirus HKU1 (PCR) Coronavirus 229E (PCR) Coronavirus NL63 (PCR) Human Metapneumovir PCR Influenza A (H1) PCR Influ A (H1N1/09) PCR Influenza A (H3) PCR Influenza A Untype (PCR) Influenza Type B (PCR) M.pneumoniae DNA (PCR) Parainfluenza 1 (PCR) Parainfluenza 2 (PCR) Parainfluenza 3 (PCR) Parainfluenza 4 (PCR) RSV (PCR) Entero/Rhino (PCR) 05/22/17 05/22/17 05/22/17 17:40 17:40 18:00 WBC 8.0 RBC 3.67 L Hgb 11.2 L D Hct 33.8 L MCV 92.1 MCH 30.5 MCHC 33.1 RDW 12.2 Plt Count 207 MPV 9.1 L Immature Gran % Seg Neutrophils % Band Neutrophils % Lymphocytes % Monocytes % Eosinophils % Basophils % Metamyelocytes % Neutrophils # Lymphocytes # Monocytes # Eosinophils # Basophils # Platelet Estimate Large Platelets Immature Plt Fraction ESR PT 26.2 H INR 2.4 APTT 42.3 H Sample Site ABG pH ABG pCO2 ABG pO2 ABG HCO3 ABG Total CO2 ABG O2 Saturation ABG Base Excess Ugo Test O2 Delivery Device Inspired O2 Sodium Potassium Chloride Carbon Dioxide BUN Creatinine Est GFR ( Amer) Est GFR (Non-Af Amer) BUN/Creatinine Ratio Glucose POC Glucose 100 H Calculated Osmolality Lactic Acid Calcium Total Bilirubin AST ALT Alkaline Phosphatase Troponin I C-Reactive Protein B-Natriuretic Peptide Serum Total Protein Albumin Globulin Albumin/Globulin Ratio Random Cortisol Chlamy pneumoniae PCR Adenovirus (PCR) B. pertussis DNA (PCR) B.parapertussis DNA PCR Coronavirus OC43 (PCR) Coronavirus HKU1 (PCR) Coronavirus 229E (PCR) Coronavirus NL63 (PCR) Human Metapneumovir PCR Influenza A (H1) PCR Influ A (H1N1/09) PCR Influenza A (H3) PCR Influenza A Untype (PCR) Influenza Type B (PCR) M.pneumoniae DNA (PCR) Parainfluenza 1 (PCR) Parainfluenza 2 (PCR) Parainfluenza 3 (PCR) Parainfluenza 4 (PCR) RSV (PCR) Entero/Rhino (PCR) 05/22/17 05/22/17 05/22/17 18:06 19:14 19:17 WBC RBC Hgb Hct MCV MCH MCHC RDW Plt Count MPV Immature Gran % Seg Neutrophils % Band Neutrophils % Lymphocytes % Monocytes % Eosinophils % Basophils % Metamyelocytes % Neutrophils # Lymphocytes # Monocytes # Eosinophils # Basophils # Platelet Estimate Large Platelets Immature Plt Fraction ESR PT INR APTT Sample Site R Radial ABG pH 7.47 H ABG pCO2 25 L ABG pO2 70 L ABG HCO3 19 L ABG Total CO2 19 L ABG O2 Saturation 95 ABG Base Excess -3 L Ugo Test N/A O2 Delivery Device HFNC Inspired O2 15.0 Sodium Potassium Chloride Carbon Dioxide BUN Creatinine Est GFR ( Amer) Est GFR (Non-Af Amer) BUN/Creatinine Ratio Glucose POC Glucose Calculated Osmolality Lactic Acid Calcium Total Bilirubin AST ALT Alkaline Phosphatase Troponin I 0.07 H* C-Reactive Protein B-Natriuretic Peptide Serum Total Protein Albumin Globulin Albumin/Globulin Ratio Random Cortisol 25.0 Chlamy pneumoniae PCR Adenovirus (PCR) B. pertussis DNA (PCR) B.parapertussis DNA PCR Coronavirus OC43 (PCR) Coronavirus HKU1 (PCR) Coronavirus 229E (PCR) Coronavirus NL63 (PCR) Human Metapneumovir PCR Influenza A (H1) PCR Influ A (H1N1/09) PCR Influenza A (H3) PCR Influenza A Untype (PCR) Influenza Type B (PCR) M.pneumoniae DNA (PCR) Parainfluenza 1 (PCR) Parainfluenza 2 (PCR) Parainfluenza 3 (PCR) Parainfluenza 4 (PCR) RSV (PCR) Entero/Rhino (PCR) 05/22/17 05/22/17 05/22/17 19:17 19:35 Unknown WBC RBC Hgb Hct MCV MCH MCHC RDW Plt Count MPV Immature Gran % Seg Neutrophils % Band Neutrophils % Lymphocytes % Monocytes % Eosinophils % Basophils % Metamyelocytes % Neutrophils # Lymphocytes # Monocytes # Eosinophils # Basophils # Platelet Estimate Large Platelets Immature Plt Fraction ESR PT INR APTT Sample Site ABG pH ABG pCO2 ABG pO2 ABG HCO3 ABG Total CO2 ABG O2 Saturation ABG Base Excess Ugo Test O2 Delivery Device Inspired O2 Sodium Potassium Chloride Carbon Dioxide BUN Creatinine Est GFR ( Amer) Est GFR (Non-Af Amer) BUN/Creatinine Ratio Glucose POC Glucose Calculated Osmolality Lactic Acid 2.0 Calcium Total Bilirubin AST ALT Alkaline Phosphatase Troponin I C-Reactive Protein B-Natriuretic Peptide 187 H Serum Total Protein Albumin Globulin Albumin/Globulin Ratio Random Cortisol Chlamy pneumoniae PCR Not Detected Adenovirus (PCR) Not Detected B. pertussis DNA (PCR) Not Detected B.parapertussis DNA PCR Not Detected Coronavirus OC43 (PCR) Not Detected Coronavirus HKU1 (PCR) Not Detected Coronavirus 229E (PCR) Not Detected Coronavirus NL63 (PCR) Not Detected Human Metapneumovir PCR Not Detected Influenza A (H1) PCR Not Detected Influ A (H1N1/09) PCR Not Detected Influenza A (H3) PCR Not Detected Influenza A Untype (PCR) Not Detected Influenza Type B (PCR) Not Detected M.pneumoniae DNA (PCR) Not Detected Parainfluenza 1 (PCR) Not Detected Parainfluenza 2 (PCR) Not Detected Parainfluenza 3 (PCR) Not Detected Parainfluenza 4 (PCR) Not Detected RSV (PCR) Not Detected Entero/Rhino (PCR) Not Detected 05/23/17 05/23/17 05/23/17 00:06 00:13 02:45 WBC RBC Hgb Hct MCV MCH MCHC RDW Plt Count MPV Immature Gran % Seg Neutrophils % Band Neutrophils % Lymphocytes % Monocytes % Eosinophils % Basophils % Metamyelocytes % Neutrophils # Lymphocytes # Monocytes # Eosinophils # Basophils # Platelet Estimate Large Platelets Immature Plt Fraction ESR PT INR APTT Sample Site ABG pH ABG pCO2 ABG pO2 ABG HCO3 ABG Total CO2 ABG O2 Saturation ABG Base Excess Ugo Test O2 Delivery Device Inspired O2 Sodium Potassium Chloride Carbon Dioxide BUN Creatinine Est GFR ( Amer) Est GFR (Non-Af Amer) BUN/Creatinine Ratio Glucose POC Glucose 112 H Calculated Osmolality Lactic Acid 1.6 Calcium Total Bilirubin AST ALT Alkaline Phosphatase Troponin I 0.10 H* C-Reactive Protein B-Natriuretic Peptide Serum Total Protein Albumin Globulin Albumin/Globulin Ratio Random Cortisol Chlamy pneumoniae PCR Adenovirus (PCR) B. pertussis DNA (PCR) B.parapertussis DNA PCR Coronavirus OC43 (PCR) Coronavirus HKU1 (PCR) Coronavirus 229E (PCR) Coronavirus NL63 (PCR) Human Metapneumovir PCR Influenza A (H1) PCR Influ A (H1N1/09) PCR Influenza A (H3) PCR Influenza A Untype (PCR) Influenza Type B (PCR) M.pneumoniae DNA (PCR) Parainfluenza 1 (PCR) Parainfluenza 2 (PCR) Parainfluenza 3 (PCR) Parainfluenza 4 (PCR) RSV (PCR) Entero/Rhino (PCR) 05/23/17 05/23/17 05/23/17 02:50 02:50 02:53 WBC 12.1 H D RBC 3.96 L Hgb 12.1 L Hct 36.0 L MCV 90.9 MCH 30.6 MCHC 33.6 RDW 12.1 Plt Count 246 MPV 9.2 L Immature Gran % Seg Neutrophils % 80.0 Band Neutrophils % 16.0 H Lymphocytes % 0.0 Monocytes % 2.0 Eosinophils % Basophils % Metamyelocytes % 2.0 H Neutrophils # 11.6 H Lymphocytes # 0.0 L Monocytes # 0.2 Eosinophils # Basophils # Platelet Estimate Normal Large Platelets Present A Immature Plt Fraction 2.3 ESR PT INR APTT Sample Site R Radial ABG pH 7.42 ABG pCO2 42 ABG pO2 97 ABG HCO3 27 ABG Total CO2 28 H ABG O2 Saturation 98 ABG Base Excess 2 Ugo Test N/A O2 Delivery Device BiPAP Inspired O2 60.0 Sodium 135 L Potassium 3.0 L Chloride 101 Carbon Dioxide 25 BUN 21 H Creatinine 1.30 Est GFR ( Amer) > 60 Est GFR (Non-Af Amer) 58 L BUN/Creatinine Ratio 16 Glucose 159 H POC Glucose Calculated Osmolality 286 Lactic Acid Calcium 7.5 L Total Bilirubin AST ALT Alkaline Phosphatase Troponin I C-Reactive Protein B-Natriuretic Peptide Serum Total Protein Albumin Globulin Albumin/Globulin Ratio Random Cortisol Chlamy pneumoniae PCR Adenovirus (PCR) B. pertussis DNA (PCR) B.parapertussis DNA PCR Coronavirus OC43 (PCR) Coronavirus HKU1 (PCR) Coronavirus 229E (PCR) Coronavirus NL63 (PCR) Human Metapneumovir PCR Influenza A (H1) PCR Influ A (H1N1/09) PCR Influenza A (H3) PCR Influenza A Untype (PCR) Influenza Type B (PCR) M.pneumoniae DNA (PCR) Parainfluenza 1 (PCR) Parainfluenza 2 (PCR) Parainfluenza 3 (PCR) Parainfluenza 4 (PCR) RSV (PCR) Entero/Rhino (PCR) Cultures: Cultures 05/22/17 00:30 Legionella Antigen - Final Urine,Catheterized Streptococcus pneumoniae Antigen (M - Final Serology 05/22/17 Range/Units Unknown Chlamy pneumoniae PCR Not Detected (Not Detect) Adenovirus (PCR) Not Detected (Not Detect) B. pertussis DNA (PCR) Not Detected (Not Detect) B.parapertussis DNA PCR Not Detected (Not Detect) Coronavirus OC43 (PCR) Not Detected (Not Detect) Coronavirus HKU1 (PCR) Not Detected (Not Detect) Coronavirus 229E (PCR) Not Detected (Not Detect) Coronavirus NL63 (PCR) Not Detected (Not Detect) Human Metapneumovir PCR Not Detected (Not Detect) Influenza A (H1) PCR Not Detected (Not Detect) Influ A (H1N1/09) PCR Not Detected (Not Detect) Influenza A (H3) PCR Not Detected (Not Detect) Influenza A Untype (PCR) Not Detected (Not Detect) Influenza Type B (PCR) Not Detected (Not Detect) M.pneumoniae DNA (PCR) Not Detected (Not Detect) Parainfluenza 1 (PCR) Not Detected (Not Detect) Parainfluenza 2 (PCR) Not Detected (Not Detect) Parainfluenza 3 (PCR) Not Detected (Not Detect) Parainfluenza 4 (PCR) Not Detected (Not Detect) RSV (PCR) Not Detected (Not Detect) Entero/Rhino (PCR) Not Detected (Not Detect) - Impressions Impressions Echocardiogram 05/22/17 12:23 Impressions: Technically challenging study due to body habitus. LVEF 65-70%. Mild left ventricular diastolic dysfunction. RV is not well visualized. No significant valvular dysfunction. S/p AVR. Normal function by Doppler. No pulmonary hypertension. Left Ventricular Wall Motion: Rest Echo Findings All wall segments showed normal motion. Findings: Study Quality * Technically sub-optimal due to body habitus. ECG Findings * Normal sinus rhythm. Left Ventricle * LV wall thickness not well obtained. * LVEF 65-70%. * Mild left ventricular diastolic dysfunction. Right Ventricle * RV is not well visualized. Left Atrium * Normal left atrial size. Right Atrium * Right atrium is not well visualized. Aortic Valve * No aortic regurgitation. * AVR not well visualized. * No aortic stenosis by Doppler. Mitral Valve * No mitral regurgitation. * Mitral valve not well visualized. * No mitral stenosis. Tricuspid Valve * Tricuspid valve not well visualized. * No tricuspid regurgitation. * Estimated RA pressure is 3 mmHg. Pulmonic Valve * Pulmonic valve is not well visualized. * No pulmonic stenosis. * No pulmonic regurgitation. Pulmonary Artery * Pulmonary artery not well visualized. Aorta * Not well visualized. Pericardium * There is no pericardial effusion present. Interatrial Septum * No evidence of PFO by color Doppler. IVC * Normal IVC dimensions and inspiratory collapse. Chest X-Ray 05/22/17 14:24 IMPRESSION: No acute pulmonary process. D/ / Nathaniel Chance / Nathaniel Chance Interpreting Provider: Nathaniel Chance Chest X-Ray 05/22/17 18:16 IMPRESSION: Shallow inspiration which may account for prominence of the vascular structures versus mild congestion. No overt pulmonary edema or consolidation. D/ / Milton Newby MD / Milton Newby MD Interpreting Provider: Milton Newby MD Chest CTA 05/22/17 19:35 IMPRESSION: Motion extremely limits evaluation however no obvious central or proximal division embolus is identified. Findings were discussed via telephone with Dr. Bryant Rao at 2230 hours. D/ / Nathaniel Chance / Nathaniel Chance Interpreting Provider: Nathaniel Chance Abdomen/Pelvis CT 05/22/17 20:20 IMPRESSION: 1. Motion limited evaluation however no specific, acute pathology in the abdomen or pelvis is identified. 2. Incidental finding of bilaterally symmetric pattern of sacroiliac joint sclerosis is nonspecific but can be seen in the setting of HLA arthropathy Finding # 1 was discussed via telephone with the patient's urologist Dr. Ben Rao at 2230 hours. D/ / Nathaniel Chance / Nathaniel Chance Interpreting Provider: Nathaniel Chance Head CT 05/22/17 21:06 IMPRESSION: No acute intracranial abnormality. No abnormal contrast enhancement. In the evaluation of meningitis, MRI would be more sensitive than CT, although it is understood that this may be difficult given the patient's clinical condition. D/ / Nathaniel Chance / Nathaniel Chance Interpreting Provider: Nathaniel Chance Chest X-Ray 05/23/17 01:49 IMPRESSION: Right IJ central line tip projecting over the SVC. No pneumothorax. No significant change in mild pulmonary edema. D/ / Lucio Castelan MD / Lucio Castelan MD Interpreting Provider: Lucio Castelan MD Exam - Constitutional Vitals: Temp Pulse Resp BP Pulse Ox 98.3 F 80 20 110/79 100 05/23/17 07:10 05/23/17 08:00 05/23/17 08:00 05/23/17 08:00 03/27/18 08:00 Exam: General: Patient alert, awake, oriented 3, interactive, in mild distress, Rigers HEENT: Normocephalic, atraumatic, pupils equal reactive to light, scleral injection bilaterally, oral mucosa moist, uvula midline, neck supple trachea midline no palpable lymphadenopathy, no thyromegaly. Chest: Symmetric bilateral correlating with respiratory effort, effort nonlabored. Cardiac: Tachycardia, systolic mechanical murmur, Radial pulses 2+ bilateral, posterior tibial and dorsal pedal pulses 2+ bilateral. Respiratory: Clear to auscultation all lung green Abdomen: Soft, nontender, positive bowel sounds, no palpable masses appreciated on examination Extremities: Symmetric bilateral, bilateral lower extremities without erythema or edema patient moving all 4 extremities spontaneously. : Scrotal edema, left superior drain status post surgical sites without abnormal drainage, OPAL drain in place with serosanguineous drainage. Neurologic: No focal deficits appreciated on examination. Face symmetric, muscle strength symmetric bilateral upper and lower extremities. Skin: Diaphoretic Consult Discharge Plan - Plan Referrals: Rae Ruiz,Rojelio Roblero [Primary Care Provider] - - Attending Attestation Patient left before I can see in evaluation.
[2017-05-23] MEDS ORDERED: Cholecalciferol (D-3) 1,000 UNIT TABLET PO SCH (09:00)
[2017-05-23] MEDS ORDERED: Aspirin Enteric Coated 81 MG Tablet PO SCH (09:00)
[2017-05-23] MEDS ORDERED: Multivit/Ca/Min/Fe/FA 1 TAB TABLET PO SCH (09:00)
[2017-05-23 09:03] LABS: BUN/Creatinine Ratio 18 (6-26); Blood Urea Nitrogen 24 mg/dL (6-20); Calcium 7.2 mg/dL (8.6-10.3); Carbon Dioxide 26 mEq/L (23-29); Chloride 105 mEq/L (98-107); Glucose 166 mg/dL (70-105); Osmolality,Calculated 290 (280-300); Potassium 3.4 mEq/L (3.5-5.1); Sodium 136 mEq/L (136-145); eGFR For African Americans > 60 (> 60); eGFR For Non-African Americans 58 (> 60)
[2017-05-23 09:37] LABS: Hematocrit 34.9 % (37.5-50.1); Hemoglobin 11.7 g/dL (12.9-16.9); Lymphocytes # 0.2 K/mcL (0.6-4.6); Mean Corpuscular HGB Conc 33.5 g/dL (31.6-35.5); Mean Corpuscular Hemoglobin 30.6 pg (28.0-33.3); Mean Corpuscular Volume 91.4 fL (83.0-100.0); Mean Platelet Volume 9.2 fL (9.4-12.4); Platelet Count 209 K/mcL (140-400); Red Blood Count 3.82 M/mcL (4.19-5.50); Red Cell Distribution Width 12.3 % (11.5-14.5)
[2017-05-23] MEDS ORDERED: Aminoglycoside Consult 1 EACH MC ONE (09:41)
[2017-05-23 09:48] LABS: INR 2.3
[2017-05-23 09:50] LABS: Activated Partial Thrombo Time 46.6 Seconds (26.0-36.0)
[2017-05-23 10:01] LABS: Neutrophils # 11.9 K/mcL (1.6-8.9); Platelet Estimate Normal (Normal)
[2017-05-23 14:13] LABS: Tobramycin,Random 2.9 mcg/mL
[2017-05-23] MEDS ORDERED: Meropenem 1,000 MG in Water for inj. (sterile) 20 ML 20 ML IVPB SCH (18:17)
--- NOTE | 2017-05-24 06:19 | Electrocardiograph Report ---
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
--- NOTE | 2017-05-24 06:19 | Electrocardiograph Report ---
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
--- NOTE | 2017-05-24 06:42 | Electrocardiograph Report ---
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
[2017-05-26 10:15] LABS: Mycoplasma pneumoniae IgG 1.42 U/L (<=0.09)
== END 2017-05-23 09:42 | disposition short-term general hospital (02) ==
LOC: 3ANU → ICNU 18:07
PROVIDERS: ADMIT Urology; ATTEND Urology